=== PATIENT | female | born 1960 | race Caucasian/White ===

== ENCOUNTER → 2018-04-05 09:25 | Outpatient (CLI) | payer BC, SELFPAY ==
[2018-04-05 10:07] LABS: Hematocrit 41.7 % (37-47); Hemoglobin 13.5 g/dl (12.0-15.0); Mean Corp Hgb Conc 32.4 g/gl (32-36); Mean Corpuscular Hgb 29.7 pg (27.0-32.0); Mean Corpuscular Volume 91.6 fL (81-99); Mean Platelet Vol. 9.1 fl (6.2-12.0); Platelet Count 256 K/mm3 (150-450); RBC Distribution Width CV 14.1 % (11.6-14.6); RBC Distribution Width SD 46.2 fl (35.1-43.9); Red Blood Count 4.55 M/mm3 (4.2-5.4); White Blood Count 6.6 K/mm3 (4.4-11.0)
[2018-04-05 10:09] LABS: Scan Indicated on CBC? Y/N NO
[2018-04-05 10:47] LABS: ALB/GLOB Ratio 1.1 RATIO (0.9-2.4); AST(SGOT) 20 U/L (15-37); Alanine Aminotransfer ALT/SGPT 23 U/L (13-56); Albumin, Serum 3.7 g/dL (3.2-5.0); Alkaline Phosphatase 75 U/L (45-117); Anion Gap 8 (5-15); BUN 13 mg/dL (7-18); BUN/Creat Ratio 14.6 RATIO (10-20); Calcium,Total 9.1 mg/dL (8.5-10.1); Chloride 107 mmol/L (98-107); Cholesterol 218 mg/dL (200); Creatinine, Serum 0.89 mg/dL (0.55-1.02); EST Glomerular Filtration Rate 69 mL/min (>60); Est Glom Filt Rate - Afr Amer 84 mL/min (>60); Globulin 3.3 g/dL (2.2-4.2); Glucose 84 mg/dL (74-106); High Density Lipoprotein 64 mg/dL; Potassium 4.5 mmol/L (3.5-5.1); Sodium Level 144 mmol/L (136-145); T4 Free Direct 1.29 ng/dL (0.76-1.46); Thyroid Stim Hormone (TSH) 1.46 uIU/mL (0.358-3.74); Triglycerides 76 mg/dL; Very Low Density Lipoprotein 15 mg/dL (5-40)
== END ==
PROVIDERS: Family Provider Family Medicine; PCP Family Medicine; Referring Provider Family Medicine; Visit Provider Family Medicine
DX: Z00.01 Encounter for general adult medical examination with abnormal findings (principal); E03.9 Hypothyroidism, unspecified; M32.9 Systemic lupus erythematosus, unspecified
CPT/HCPCS: 36415; 80053; 80061; 84439; 84443; 85027

== ENCOUNTER → 2019-04-25 08:55 | Outpatient (CLI) | payer BC, SELFPAY ==
[2019-04-25 09:06] LABS: Bacteria 0 SEEN /hpf (None Seen); Mucous, Urine 0 SEEN /hpf (<or=2+); Red Blood Cells-Urine 0 SEEN /hpf (0-5); White Blood Cells 0 SEEN /hpf (0-5)
[2019-04-25 10:55] LABS: Color, Urine Yellow (Yellow); Glucose, Dipstick Normal (Normal); Ketone-Dipstick Negative (Negative); Leukocyte Esterase-Dipstick 25 /ul (Negative); Nitrite-Dipstick Negative (Negative); Occult Blood-Urine 25 /ul (Negative); Protein-Dipstick Negative (Negative); Specific Gravity, Urine 1.015 (1.002-1.030); Urine Bilirubin Dipstick Negative (Negative); Urine Clarity Clear (Clear); Urine Urobilinogen Normal (Normal)
[2019-04-25 10:59] LABS: Erythrocyte Sedimentation Rate 24 mm/hr (0-30)
[2019-04-25 11:01] LABS: Absolute Neutrophil Count 7.5 X10^3/uL (2.0-7.7); Basophil# 0.05 X10^3/uL; Basophil% 0.5 % (0-1); Eosinophil# 0.18 X10^3/uL; Eosinophils% 1.6 % (0-5); Hematocrit 42.1 % (37-47); Hemoglobin 13.2 g/dL (12.0-15.0); Lymphocyte % 20.8 % (19-41); Mean Corp Hgb Conc 31.4 g/dL (32-36); Mean Corpuscular Hgb 28.1 pg (27.0-32.0); Mean Corpuscular Volume 89.8 fL (81-99); Mean Platelet Vol. 9.1 fl (6.2-12.0); Monocyte# 1.01 X10^3/uL; Monocyte% 9.1 % (0-10); NRBC Flagged by Analyzer 0 % (0-5); Neutrophil # 7.45 X10^3/uL (2.7-7.7); Neutrophil % 67.5 % (47-70); Platelet Count 347 K/mm3 (150-450); RBC Distribution Width CV 13.8 % (11.6-14.6); RBC Distribution Width SD 45.3 fl (35.1-43.9); Red Blood Count 4.69 M/mm3 (4.2-5.4)
[2019-04-25 11:02] LABS: Squamous Epithelial Cells - UA 0-5 SEEN /hpf (5-10)
[2019-04-25 11:35] LABS: AST(SGOT) 19 U/L (15-37); Alanine Aminotransfer ALT/SGPT 21 U/L (13-56); Albumin, Serum 3.8 g/dL (3.2-5.0); Alkaline Phosphatase 91 U/L (45-117); Anion Gap 7 (5-15); BUN 11 mg/dL (7-18); BUN/Creat Ratio 13.1 RATIO (10-20); Calcium,Total 9.1 mg/dL (8.5-10.1); Chloride 104 mmol/L (98-107); Cholesterol 199 mg/dL (200); Creatinine, Serum 0.84 mg/dL (0.55-1.02); EST Glomerular Filtration Rate 74 mL/min (>60); Est Glom Filt Rate - Afr Amer 89 mL/min (>60); Globulin 3.9 g/dL (2.2-4.2); Glucose 88 mg/dL (74-106); High Density Lipoprotein 66 mg/dL; Protein, Total 7.7 g/dL (6.4-8.2); Sodium Level 141 mmol/L (136-145); T4 Free Direct 1.27 ng/dL (0.76-1.46); Thyroid Stim Hormone (TSH) 6.36 uIU/mL (0.358-3.74); Triglycerides 70 mg/dL; Very Low Density Lipoprotein 14 mg/dL (5-40)
[2019-04-27 09:55] LABS: Vitamin D,25 Hydroxy 63.3 ng/mL (29.95-100.01)
[2019-04-27 16:12] LABS: ANTINUCLEAR ANTIBODIES DIRECT Positive (Negative); Anti-Centromere B Ab 1.9 AI (0.0-0.9); Anti-Chromatin 0.2 AI (0.0-0.9); Anti-Jo <0.2 AI (0.0-0.9); Anti-Scleroderma-70 AB <0.2 AI (0.0-0.9); RNP Ab 0.2 AI (0.0-0.9); SJOGREN'S Anti-SS-A test < 0.2 AI (0.0-0.9); SJOGREN'S Anti-SS-B test < 0.2 AI (0.0-0.9); Smith Ab 0.2 AI (0.0-0.9)
[2019-04-27 16:27] LABS: Anti-dsDNA Ab 1 IU/mL (0-9)
== END ==
PROVIDERS: Family Provider Family Medicine; PCP Family Medicine; Referring Provider Family Medicine; Visit Provider Family Medicine
DX: Z00.00 Encounter for general adult medical examination without abnormal findings (principal); E03.9 Hypothyroidism, unspecified; M32.9 Systemic lupus erythematosus, unspecified; M79.10 Myalgia, unspecified site; E21.3 Hyperparathyroidism, unspecified
CPT/HCPCS: 36415; 80053; 80061; 81001; 82306; 83970; 84439; 84443; 85025; 85652; 86038; 86140; 86225; 86235

== ENCOUNTER → 2019-07-14 15:54 | Outpatient (CLI) | payer BC, SELFPAY ==
[2019-07-14 16:53] LABS: Color, Urine Yellow (Yellow); Glucose, Dipstick Normal (Normal); Ketone-Dipstick Negative (Negative); Leukocyte Esterase-Dipstick Negative /ul (Negative); Nitrite-Dipstick Negative (Negative); Occult Blood-Urine 50 /ul (Negative); Protein-Dipstick Negative (Negative); Specific Gravity, Urine 1.005 (1.002-1.030); Urine Bilirubin Dipstick Negative (Negative); Urine Clarity Clear (Clear); Urine Urobilinogen Normal (Normal)
[2019-07-14 16:54] LABS: Absolute Lymphocyte Count 2.79 X10^3/uL (0.83-4.51); Absolute Neutrophil Count 6.9 X10^3/uL (2.0-7.7); Basophil# 0.06 X10^3/uL; Basophil% 0.6 % (0-1); Eosinophil# 0.16 X10^3/uL; Eosinophils% 1.5 % (0-5); Hematocrit 39.9 % (37-47); Hemoglobin 12.2 g/dL (12.0-15.0); Lymphocyte # 2.79 X10^3/ul (4.0); Lymphocyte % 25.8 % (19-41); Mean Corp Hgb Conc 30.6 g/dL (32-36); Mean Corpuscular Volume 85.1 fL (81-99); Mean Platelet Vol. 8.8 fl (6.2-12.0); Monocyte# 0.87 X10^3/uL; NRBC Flagged by Analyzer 0 % (0-5); Neutrophil # 6.91 X10^3/uL (2.7-7.7); Neutrophil % 63.8 % (47-70); Platelet Count 424 K/mm3 (150-450); RBC Distribution Width CV 14.1 % (11.6-14.6); RBC Distribution Width SD 43.4 fl (35.1-43.9); Red Blood Count 4.69 M/mm3 (4.2-5.4); White Blood Count 10.8 K/mm3 (4.4-11.0)
[2019-07-14 17:08] LABS: Erythrocyte Sedimentation Rate 59 mm/hr (0-30)
[2019-07-14 17:12] LABS: Protein, Urine (Random) < 6.0 mg/dL (<11.9)
[2019-07-14 17:24] LABS: ALB/GLOB Ratio 0.8 RATIO (0.9-2.4); AST(SGOT) 18 U/L (15-37); Alanine Aminotransfer ALT/SGPT 23 U/L (13-56); Albumin, Serum 3.6 g/dL (3.2-5.0); Alkaline Phosphatase 97 U/L (45-117); Anion Gap 6 (5-15); BUN 10 mg/dL (7-18); BUN/Creat Ratio 11.1 RATIO (10-20); Chloride 104 mmol/L (98-107); EST Glomerular Filtration Rate 68 mL/min (>60); Est Glom Filt Rate - Afr Amer 82 mL/min (>60); Globulin 4.4 g/dL (2.2-4.2); Glucose 94 mg/dL (74-106); Potassium 3.7 mmol/L (3.5-5.1); Sodium Level 139 mmol/L (136-145)
[2019-07-15 09:28] LABS: Hepatitis B Surface Antibody Non-Reactive; Hepatitis B Surface Antigen Non-Reactive (Nonreactive); Hepatitis C Antibody Non-Reactive (Nonreactive)
[2019-07-16 10:58] LABS: Hepatitis B Core AB IgM Negative (Negative)
== END ==
PROVIDERS: Family Provider Family Medicine; PCP Family Medicine; Referring Provider Internal Medicine Rheumatology; Visit Provider Internal Medicine Rheumatology
DX: M06.4 Inflammatory polyarthropathy (principal); R76.8 Other specified abnormal immunological findings in serum; E89.0 Postprocedural hypothyroidism; Z90.09 Acquired absence of other part of head and neck
CPT/HCPCS: 36415; 80053; 81002; 82570; 84156; 85025; 85652; 86140; 86705; 86706; 86803; 87340

== ENCOUNTER → 2019-07-20 13:46 | Outpatient (CLI) | payer BC, SELFPAY | PROVIDERS: Family Provider Family Medicine; PCP Family Medicine; Referring Provider Internal Medicine Rheumatology; Visit Provider Internal Medicine Rheumatology | DX: M06.4 Inflammatory polyarthropathy (principal); R76.8 Other specified abnormal immunological findings in serum; E89.0 Postprocedural hypothyroidism; Z90.09 Acquired absence of other part of head and neck | CPT/HCPCS: 36415 ==

== ENCOUNTER → 2020-04-23 | Outpatient (CLI) ==
[2020-04-23 10:09] LABS: Absolute Lymphocyte Count 2.58 X10^3/uL (0.83-4.51); Absolute Neutrophil Count 6.1 X10^3/uL (2.0-7.7); Basophil# 0.04 X10^3/uL; Basophil% 0.4 % (0-1); Eosinophil# 0.14 X10^3/uL; Eosinophils% 1.4 % (0-5); Hematocrit 43.2 % (37-47); Hemoglobin 13.5 g/dL (12.0-15.0); Lymphocyte # 2.58 X10^3/ul (4.0); Lymphocyte % 26.5 % (19-41); Mean Corp Hgb Conc 31.3 g/dL (32-36); Mean Corpuscular Hgb 28.2 pg (27.0-32.0); Mean Corpuscular Volume 90.2 fL (81-99); Mean Platelet Vol. 9.2 fl (6.2-12.0); Monocyte# 0.87 X10^3/uL; Monocyte% 8.9 % (0-10); NRBC Flagged by Analyzer 0 % (0-5); Neutrophil # 6.08 X10^3/uL (2.7-7.7); Neutrophil % 62.5 % (47-70); Platelet Count 344 K/mm3 (150-450); RBC Distribution Width CV 14.3 % (11.6-14.6); RBC Distribution Width SD 47.5 fl (35.1-43.9); Red Blood Count 4.79 M/mm3 (4.2-5.4); White Blood Count 9.7 K/mm3 (4.4-11.0)
[2020-04-23 10:50] LABS: Vitamin D,25 Hydroxy 65.2 ng/mL
[2020-04-23 12:04] LABS: ALB/GLOB Ratio 0.9 RATIO (0.9-2.4); AST(SGOT) 19 U/L (15-37); Alanine Aminotransfer ALT/SGPT 22 U/L (13-56); Albumin, Serum 3.6 g/dL (3.2-5.0); Alkaline Phosphatase 105 U/L (45-117); Anion Gap 3 (5-15); BUN 11 mg/dL (7-18); BUN/Creat Ratio 12.2 RATIO (10-20); CRP 8.59 mg/L (0.0-3.0); Chloride 106 mmol/L (98-107); Cholesterol 192 mg/dL (200); EST Glomerular Filtration Rate 68 mL/min (>60); Est Glom Filt Rate - Afr Amer 82 mL/min (>60); Globulin 3.8 g/dL (2.2-4.2); Glucose 85 mg/dL (74-106); High Density Lipoprotein 70 mg/dL; Protein, Total 7.4 g/dL (6.4-8.2); Rheumatoid Factor < 10.0 IU/mL (<15); Sodium Level 141 mmol/L (136-145); T4 Free Direct 1.66 ng/dL (0.76-1.46); Thyroid Stim Hormone (TSH) 0.09 uIU/mL (0.358-3.74); Triglycerides 81 mg/dL; Very Low Density Lipoprotein 16 mg/dL (5-40)
[2020-04-25 08:24] LABS: PTHIN 32.1 pg/mL (18.4-80.1)
[2020-04-26 14:08] LABS: ANTINUCLEAR ANTIBODIES DIRECT Positive (Negative); Anti-Chromatin <0.2 AI (0.0-0.9); Anti-Jo <0.2 AI (0.0-0.9); Anti-Scleroderma-70 AB <0.2 AI (0.0-0.9); RNP Ab 0.2 AI (0.0-0.9); SJOGREN'S Anti-SS-A test < 0.2 AI (0.0-0.9); SJOGREN'S Anti-SS-B test < 0.2 AI (0.0-0.9); Smith Ab <0.2 AI (0.0-0.9)
[2020-04-26 18:23] LABS: Anti-dsDNA Ab 1 IU/mL (0-9)
[2020-04-27 12:23] LABS: CCP IgG Antibodies 9 units (0-19)
== END | disposition home or self-care (01) ==
PROVIDERS: Family Medicine
DX: Z00.00 Encounter for general adult medical examination without abnormal findings (principal); M32.9 Systemic lupus erythematosus, unspecified; E03.9 Hypothyroidism, unspecified; M06.4 Inflammatory polyarthropathy; Z86.39 Personal history of other endocrine, nutritional and metabolic disease
CPT/HCPCS: 36415; 80053; 80061; 82306; 83970; 84439; 84443; 85025; 86038; 86140; 86200; 86225; 86235; 86431

== ENCOUNTER → 2021-03-03 13:44 | Outpatient (CLI) | payer BC, SELFPAY ==
--- NOTE | 2021-03-03 | BRBX_PTH ---
PATIENT: MARIANNA SMITH LOC: [facility] U#:[id number] AGE/SX: 65/F ROOM: RE03/03/[address]: Dr. Hilda Lira MD : 1960 BED: DIS: SPEC #: [id number] RECD: 03/03/21 13:51 STATUS: CORNELIUS REMarianela #: [id number] MONIKA: 03/03/21 00:[address]: Hilda Lira DEPT: SURGICAL PATHOLOGY RECD BY: Tl Burrell ENTERED: 03/03/21 13:51 SP TYPE: BREAST BX OTHR DR: Dr. Carlos Alberto Lobo DO Tissues: Right breast, NOS Procedures: Surgery Specimen Level IV HEADER OPERATION: Right breast biopsy PRE-OP DIAGNOSIS: Right breast mass 12 o?clock, 4 cm from nipple TISSUE SUBMITTED: Right breast tissue FIXATION TIME: 80.5 hours MICROSCOPIC DIAGNOSIS Right breast mass, 12 o?clock, 4 cm from nipple, core biopsy: Invasive ductal carcinoma, nuclear grade 2 (0.3 cm in greatest length). See comment. 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 Immunohistochemistry ([id number]) supports the above diagnosis. ER/ID/Ncd3hrm studies are being performed on sections of tumor and the results from this study will be reported separately ([id number]). Case has been reviewed in consultation with Dr. Walters who concurs with the above diagnosis. IDC:AM MICROSCOPIC DESCRIPTION Slides are reviewed. GROSS DESCRIPTION Received in fixative is one container labeled with the patient name and designated right breast. The specimen consists of multiple elongated fragments of dorantes-yellow fibroadipose tissue that in aggregate measure 1.5 x 0.5 x 0.1 cm. The entire specimen is submitted in one cassette. / YOLANDA:venus 03/03/21 TC:0 CPT: 22792
--- NOTE | 2021-03-03 | IMM_PTH ---
PATIENT: MARIANNA SMITH LOC: [facility] U#:[id number] AGE/SX: 65/F ROOM: RE03/03/[address]: Dr. Hilda Lira MD : 1960 BED: DIS: SPEC #: [id number] RECD: 03/06/21 10:07 STATUS: CORNELIUS REQ #: [id number] MONIKA: 03/03/21 00:[address]: Hilda Lira DEPT: IMMUNOHISTOCHEMISTRY RECD BY: Autumn Plunkett ENTERED: 03/06/21 10:09 SP TYPE: IMMUNO OTHR DR: Dr. Carlos Alberto Lobo DO Tissues: Right breast, NOS Procedures: CALPONIN-1 (add) CK5-6 (add) CK8 (add) E-CAD (add) HER2 BURAK (add) KI-67 (add) P53 (add) NH (add) P40 (add) ER (initial) PHYSICIAN & INSTITUTION [address] [address] SPECIMEN INFORMATION: Tissue Source: Right breast Clinical Info: Right breast mass, 12 o?clock, 4 cm from nipple Specimen Number: [id number] CPT code: 37508, 01586 x6, 05916 x3 METHODOLOGY: Deparaffinized sections of prefer/formalin-fixed tissue or PAP/DQ stained slides are incubated with monoclonal/polyclonal antibodies/oligonucleotide probes. Localization is made via biotin free immunoperoxidase method. Appropriate controls are performed and reacted as expected. Results on target cell population are indicated in the following table: RESULTS: ANTIBODY / CLONE RESULT E-Cad (ECH-6) positive CK8 (68tzqaO95) positive Calponin-1 (RT075T) negative CK5-6 (D5 & 1684) negative P40 (BC28) negative P53 (DO-7) positive, rare cells Ki-67 (30-9) positive, low MORPHOMETRIC ANALYSIS ER (clone 6F11) >95%, strong intensity NH (clone 16/1E2) <1% Her-2Neu (clone CB11) 3+ The prognostic test for HER2 is performed on formalin-fixed paraffin embedded tissue. A 3+ (positive) staining pattern is defined as intense, homogeneous, complete, circumferential membranous staining in >10% of contiguous tumor cells. A similar weak (2+) staining pattern is interpreted as equivocal. JACQUELINE follow-up testing is recommended for all equivocal cases. Positivity/negativity for ER/NH is reported if > or < 1% of the tumor cells are immuno- reactive, respectively. The ASCO/CAP criteria is used for scoring. Reference: Journal of Clinical Oncology, 2013; 31:6846-5143 & 2010; 16:4113-2914. Duration of fixation: 80.5 Hrs; Sample Adequate: Yes. These assays have not been validated on decalcified tissues. Results should be interpreted with caution given the likelihood of false negativity on decalcified specimens. These tests were developed and their performance characteristics determined by [facility]. They may not have been cleared or approved by the U.S. Food and Drug Administration. The FDA has determined that such clearance or approval is not necessary. The above immunohistochemical/dualISH markers are ordered and reviewed by the Pathologist. INTERPRETATION: Right breast mass, 12 o?clock, 4 cm from nipple, core biopsy: Invasive ductal carcinoma, nuclear grade 2. Positive for estrogen receptors (favorable prognostic indicator). Negative for progesterone receptors (unfavorable prognostic indicator). Positive for overexpression of RBJ1xqx. SJ:venus 03/07/2021
== END ==
PROVIDERS: PCP Family Medicine; Visit Provider Surgery
DX: N63.0 Unspecified lump in unspecified breast (principal)
CPT/HCPCS: 88305; 88341; 88342

== ENCOUNTER → 2021-03-20 11:26 | Outpatient (CLI) | payer BC, SELFPAY ==
--- NOTE | 2021-03-20 11:39 | MRI_ITS ---
STUDY: BILATERAL BREAST MR WITHOUT AND WITH CONTRAST REASON FOR EXAM: Female, 60 years old. Positive biopsy of right breast cancer. TECHNIQUE: Multi-sequence multi-echo imaging of both breasts was performed with a dedicated breast coil. T1-weighted and T2-weighted images were performed before the administration of contrast. T1-weighted images were also performed after the administration of 9ml IV Dotarem without complications. COMPARISON: Screening mammogram dated 02/17/2019 and 02/16/2020. Right breast ultrasound 02/15/2021 and ultrasound-guided biopsy images of the right breast dated 03/02/2021. FINDINGS: RIGHT BREAST: The breast tissue is scattered fibroglandular densities with minimal background enhancement. Lobulated enhancing mass at the 12 o''clock position of the right breast 4 cm behind the nipple corresponding to the mammographic and ultrasonographic abnormalities measuring 1.6 cm x 1.2 cm x 2.4 cm. LEFT BREAST: The breast tissue is scattered fibroglandular densities with minimal background enhancement. There are no abnormal enhancing masses or areas of non-mass enhancement in the left breast. There are no enlarged or abnormal lymph nodes. There is no abnormality in the visualized regions of the chest or liver. MRI/Breast Bilateral W/O and W IMPRESSION: Lobulated enhancing mass measuring 1.6 cm x 1.2 cm x 2.4 cm at the 12 o''clock position of the right breast 4 cm behind the nipple corresponding to the index lesion shown on mammography and ultrasound. No other abnormality on the breast MRI with contrast. CATEGORY: BIRADS Category 6: Known Biopsy-Proven Malignancy - Appropriate Action Should Be Taken. A letter regarding these results will be sent to the patient by the facility within 30 days. Electronically Signed: Reese Jean MD at 12:03 EDT , Service support ,
[2021-03-20 12:00] LABS: CREATININE FINGERSTICK 0.9 mg/dL (0.55-1.02); EGFR FINGERSTICK > 60.0000 mL/min (>60)
== END ==
PROVIDERS: PCP Family Medicine; Referring Provider Surgery; Visit Provider Surgery
DX: C50.919 Malignant neoplasm of unspecified site of unspecified female breast (principal)
CPT/HCPCS: 77049; A9575; A4216; C8908

== ENCOUNTER → 2021-03-23 16:28 | Outpatient (CLI) | payer BC, SELFPAY ==
--- NOTE | 2021-03-23 16:45 | RAD_ITS ---
STUDY: X-RAY - LUMBAR SPINE REASON FOR EXAM: Female, 60 years old. Low back and right leg pain TECHNIQUE: 5 view(s) of the lumbar spine were obtained. COMPARISON: None FINDINGS: Normal lumbar lordosis. There is a mild dextroscoliosis of the lumbar spine. There is a normal alignment of the vertebrae in the lateral view. There is multilevel endplate spondylosis of the lumbar vertebrae. There is multi-level degenerative disc disease with multi-level disc space narrowing. There is no demonstrated fracture. The soft tissue structures are unremarkable. RAD/Lumbar Spine 2 or 3 Views IMPRESSION: Degenerative changes of the spine, as detailed above. Mild levoscoliosis Electronically Signed: Juan Greer MD at 16:59 EDT , Service support ,
== END ==
PROVIDERS: PCP Family Medicine; Referring Provider Family Medicine; Visit Provider Family Medicine
DX: M79.604 Pain in right leg (principal)
CPT/HCPCS: 72100

== ENCOUNTER → 2021-03-27 15:14 | Outpatient (CLI) | payer BC, SELFPAY ==
--- NOTE | 2021-03-27 15:16 | ECHODONC_ITS ---
Reason For Study: PRE-CHEMO Procedure This was a 2D Doppler, Color Flow transthoracic echocardiogram. Myocardial strain analysis was performed in this exam to aid in the assessment of cardiac function. Exam performed portable in ICU/CCU. Left Ventricle Normal LV size. Left ventricular systolic function is normal. The estimated ejection fraction is 60 %. Normal diastology for age. No regional wall motion abnormalities noted. Right Ventricle Normal RV size. Normal systolic function. Atria Normal left atrium. Normal right atrium. Mitral Valve Normal mitral valve. Tricuspid Valve Normal tricuspid valve. Mild tricuspid valve insufficiency. Pulmonary artery systolic pressure is 26 mmHg. Aortic Valve Normal aortic valve. Trisinus/trileaflet aortic valve. Pulmonic Valve Normal pulmonic valve. Great Vessels Normal aortic root. The pulmonary artery is normal size. Normal inferior vena cava. Pericardium/Pleural No pericardial effusion. MMode/2D Measurements & Calculations LVIDd: 3.9 cm IVSd: 0.82 cm Ao root diam: 2.6 cm LVIDs: 2.7 cm LVPWd: 0.76 cm RVDd: 2.9 cm FS: 31.7 % LAV(MOD-bp): 35.2 ml LA A4 area: 14.3 cm2 LA dimension(2D): 3.0 cm LAV(MOD-bp) Indexed: 24.3 ml/m2 LAV(MOD-sp2): 28.8 ml LAV(MOD-sp4): 36.9 ml RA A4 area: 11.6 cm2 Doppler Measurements & Calculations MV E max adam: 69.1 cm/sec Lat Peak E' Adam: 12.4 cm/sec Med Peak E' Adam: 7.4 cm/sec MV A max adam: 55.2 cm/sec E/E' lat: 5.6 E/E' med: 9.4 MV E/A: 1.3 Ao V2 max: 137.3 cm/sec LV V1 max: 110.8 cm/sec TR max adam: 235.4 cm/sec Ao max P.5 mmHg LV V1 max P.9 mmHg TR max P.2 mmHg ECHO/ONC Echo Complete Interpretation Summary Normal LV size. Left ventricular systolic function is normal. The estimated ejection fraction is 60 %. The global longitudinal strain is normal. The global longitudinal strain = -23. 1 % (normal). Structurally normal valves. Ordering Physician: Roger Conti Referring Physician: MARI AGUIRRE Performed By: Margaret Lopez RDCS, RVT
--- NOTE | 2021-03-27 16:20 | RAD_ITS ---
STUDY: X-RAY CHEST REASON FOR EXAM: Female, 60 years old. Breast cancer. Prechemotherapy TECHNIQUE: PA and lateral views of the chest. COMPARISON: None. FINDINGS: The lungs are clear and expanded. There is no demonstrated pleural abnormality. Normal size heart. Normal mediastinum and venus. Normal visualized pulmonary arteries. Normal visualized aortic arch and descending thoracic aorta. Minimal degenerative changes of the thoracic spine. Normal visualized ribs, clavicles, and shoulders. There is no demonstrated abnormality of the visualized soft tissue structures of the upper abdomen. RAD/Chest PA and Lateral IMPRESSION: No acute cardiopulmonary disease. Electronically Signed: Arnaud Argueta DO at 17:51 EDT Tel [phone], Service support ,
== END ==
PROVIDERS: PCP Family Medicine; Referring Provider Internal Medicine Medical Oncology; Visit Provider Internal Medicine Medical Oncology
DX: C50.411 Malignant neoplasm of upper-outer quadrant of right female breast (principal); Z17.0 Estrogen receptor positive status [ER+]; Z01.818 Encounter for other preprocedural examination
CPT/HCPCS: 71046; 93306; 93356

== ENCOUNTER → 2021-03-30 16:03 | Outpatient (CLI) | payer BC, SELFPAY ==
--- NOTE | 2021-03-30 16:06 | BD_ITS ---
STUDY: DUAL ENERGY X-RAY ABSORPTIOMETRY / DXA REASON FOR EXAM: Female, 60 years old. SCREENING TECHNIQUE: Bone Mineral Density (BMD) measurements of lumbar spine and bilateral hips were obtained. COMPARISON: None. FINDINGS: Lumbar Spine (L1-L4): g/cm2 (0.915) / T-score (-1.1) / Z-score (0.4) Findings are suggestive of osteopenia with a low fracture risk. Left Femur Total: g/cm2 (0.683) / T-score (-2.1) / Z-score (-1.1) Left Femoral Neck: g/cm2 (0.597) / T-score (-2.3) / Z-score (-0.9) Right Femur Total: g/cm2 (0.680) / T-score (-2.1) / Z-score (-1.1) Right Femoral Neck: g/cm2 (0.672) / T-score (-1.6) / Z-score (-0.2) BD/Dexa Bone Density Study IMPRESSION: The patient is considered osteopenic as outlined below according to World Jossue Organization (WHO) criteria with a high fracture risk. Reference Information: The T-score is the number of standard deviations above or below the standard which is normal for young adults at their peak bone mineral density. The World Health Organization (WHO) interprets the T-scores as follows: Above -1 Normal bone density Between -1 and -2.5 Osteopenia Equal to / or below -2.5 Osteoporosis As a practical clinical guideline, osteopenia may be graded as follows: Mild -1 through -1.5 Moderate -1.6 through -2.0 Severe -2.1 through -2.4 The Z-score is the number of standard deviations above or below age-matched controls. A Z-score of less than -1.5 would be considered abnormal. References: 1. NIH Osteoporosis and Related Bone Diseases www osteo.org 2. International Society for Clinical Densitometry www iscd.org 3. National Osteoporosis Foundation www nof.org Electronically Signed: Shun Giordano MD at 15:01 EDT , Service support ,
== END ==
PROVIDERS: PCP Family Medicine; Referring Provider Internal Medicine Medical Oncology; Visit Provider Internal Medicine Medical Oncology
DX: Z13.820 Encounter for screening for osteoporosis (principal)
CPT/HCPCS: 77080

== ENCOUNTER 2021-03-31 13:47 | Observation (INO) | payer BC, SELFPAY ==
--- NOTE | 2021-03-29 16:09 | EKG12_ITS ---
Test Reason : PREOP Blood Pressure : / mmHG Vent. Rate : 068 BPM Atrial Rate : 068 BPM P-R Int : 116 ms QRS Dur : 074 ms QT Int : 386 ms P-R-T Axes : 078 084 053 degrees QTc Int : 410 ms Normal sinus rhythm Normal ECG Confirmed by CHRIS GAR, EDGAR ([id number]), senior technical editor JAYDEN LOPEZ ([id number]) on 03/31/2021 9:57:50 AM Referred By: Hilda Lira Confirmed By:EDGAR PEREZ MD
[2021-03-29 17:01] LABS: Hematocrit 41.8 % (37-47); Hemoglobin 13.6 g/dL (12.0-15.0); Mean Corp Hgb Conc 32.5 g/dL (32-36); Mean Corpuscular Hgb 29.6 pg (27.0-32.0); Mean Corpuscular Volume 90.9 fL (81-99); Mean Platelet Vol. 8.7 fl (6.2-12.0); Platelet Count 279 K/mm3 (150-450); RBC Distribution Width CV 14.6 % (11.6-14.6); RBC Distribution Width SD 49.4 fl (35.1-43.9); White Blood Count 9.4 K/mm3 (4.4-11.0)
[2021-03-29 17:20] LABS: Partial Thromboplast Time 28.3 Seconds (24.1-36.2)
[2021-03-29 17:41] LABS: AST(SGOT) 27 U/L (15-37); Alanine Aminotransfer ALT/SGPT 22 U/L (13-56); Albumin, Serum 3.7 g/dL (3.2-5.0); Alkaline Phosphatase 82 U/L (45-117); Anion Gap 2 (5-15); BUN 13 mg/dL (7-18); BUN/Creat Ratio 13.6 RATIO (10-20); Bilirubin, Direct 0.14 mg/dL (0.00-0.30); Calcium,Total 8.9 mg/dL (8.5-10.1); Chloride 107 mmol/L (98-107); Creatinine, Serum 0.96 mg/dL (0.55-1.02); EST Glomerular Filtration Rate 63 mL/min (>60); Est Glom Filt Rate - Afr Amer 76 mL/min (>60); Globulin 3.5 g/dL (2.2-4.2); Glucose 101 mg/dL (74-106); Potassium 3.9 mmol/L (3.5-5.1); Protein, Total 7.2 g/dL (6.4-8.2); Sodium Level 139 mmol/L (136-145)
[2021-03-31] VITALS (8 sets, daily range): BP systolic 132–155; BP diastolic 70–86; PULSE 64–75; RESP 16; TEMP 36.2–37.1; O2SAT 97–100; BMI 19.2; BMI 20.5
--- NOTE | 2021-03-31 | IMM_PTH ---
PATIENT: MARIANNA SMITH LOC: MS2 U#:[id number] AGE/SX: 60/F ROOM: [facility] RE03/31/[address]: Dr. Hilda Lira MD : 1960 BED: 1 DIS: 04/01/2021 SPEC #: [id number] RECD: 04/05/21 12:09 STATUS: CORNELIUS REQ #: [id number] MONIKA: 03/31/21 00:[address]: Hilda Lira DEPT: IMMUNOHISTOCHEMISTRY RECD BY: Autumn Plunkett ENTERED: 04/05/21 12:11 SP TYPE: IMMUNO OTHR DR: Dr. Carlos Alberto Lobo, DO Tissues: A - Axillary lymph node, NOS B - Right breast, NOS Procedures: Calponin-1(initial) CALPONIN-1 (add) CK7 (add) Pankeratin (initial) Pankeratin (add) P40 (add) PHYSICIAN & INSTITUTION [place] [address] SPECIMEN INFORMATION: Tissue Source: A ? Right sentinel node, biopsy, B ? Right breast Clinical Info: Breast cancer Specimen Number: [id number] A1 & A2, B4-B6 CPT code: 59855 x2, 14150 x8 METHODOLOGY: Deparaffinized sections of prefer/formalin-fixed tissue or PAP/DQ stained slides are incubated with monoclonal/polyclonal antibodies/oligonucleotide probes. Localization is made via biotin free immunoperoxidase method. Appropriate controls are performed and reacted as expected. Results on target cell population are indicated in the following table: RESULTS: ANTIBODY / CLONE RESULT Block A1 AE1-3 (AE1/AE3/PCK26) negative CK7 (OV-TL12/30) negative Block A2 AE1-3 (AE1/AE3/PCK26) negative CK7 (OV-TL12/30) negative Block B4 Calponin-1 (QA085K) focally negative P40 (BC28) focally negative Block B5 Calponin-1 (IB580G) negative P40 (BC28) negative Block B6 Calponin-1 (ZI795Q) negative P40 (BC28) negative These tests were developed and their performance characteristics determined by [facility]. They may not have been cleared or approved by the U.S. Food and Drug Administration. The FDA has determined that such clearance or approval is not necessary. The above immunohistochemical/dualISH markers are ordered and reviewed by the Pathologist. INTERPRETATION: A. Right sentinel lymph nodes, biopsy: Two out of two lymph nodes, negative for metastatic carcinoma. B. Right breast, mastectomy: Invasive ductal carcinoma, arising in a solid papillary carcinoma, ductal carcinoma in situ also present. YOLANDA:venus 04/10/2021 Case has been reviewed in consultation with Dr. Walters who concurs with the above diagnosis. IDC:AM
--- NOTE | 2021-03-31 | BREAST_PTH ---
PATIENT: MARIANNA SMITH LOC: MS2 U#:[id number] AGE/SX: 60/F ROOM: [facility] RE03/31/[address]: Dr. Hilda Lira MD : 1960 BED: 1 DIS: 04/01/2021 SPEC #: [id number] RECD: 03/31/21 13:12 STATUS: CORNELIUS REMarianela #: [id number] MONIKA: 03/31/21 00:[address]: Hilda Lira DEPT: SURGICAL PATHOLOGY RECD BY: Tl Burrell ENTERED: 03/31/21 13:13 SP TYPE: BREAST OTHR DR: Dr. Carlos Alberto Lobo, DO Tissues: A - LYMPH NODE BIOPSY B - Right breast, NOS C - Left breast, NOS Procedures: Frozen Section (charge) Frozen Section Add'l ([facility]) Surgery Specimen Level V HEADER OPERATION: Right mastectomy with sentinel lymph node biopsy PRE-OP DIAGNOSIS: Breast cancer TISSUE SUBMITTED: A - Right sentinel nodes, FS, B - Right breast, long - lateral, short - superior, C - Left breast, long stitch - lateral, short - superior FROZEN SECTION DIAGNOSIS A. Right sentinel nodes, biopsy: Two out of two lymph nodes negative for carcinoma. AM:venus 03/31/2021 Case has been reviewed in consultation with Dr. Fry who concurs with the above diagnosis. IDC:SJ MICROSCOPIC DIAGNOSIS A. Right sentinel lymph nodes, biopsy: Two out of two lymph nodes, negative for metastatic carcinoma. B. Right breast, mastectomy: Invasive ductal carcinoma, arising in a solid papillary carcinoma, ductal carcinoma in situ also present. See comment. C. Left breast mastectomy: Fibrocystic changes, adenosis and .intraductal hyperplasia without atypia Lobular involution. Focal calcifications. SJ:venus 04/10/2021 COMMENT A. The lymph nodes are negative for metastatic carcinoma on multiple H & E levels and immunohisto-chemical stains for cytokeratins ([id number]). B. All the slides containing the tumor are sent to [facility] for expert opinion and reviewed by Dr. Bethanie Macedo and above diagnosis is ordered. The complete report is viewable in patient?s EMR. Immunohistochemistry ([id number]) performed here and also [facility]. BREAST CANCER SUMMARY Procedure ? total mastectomy Specimen laterality ? right Invasive tumor: Tumor site ? central upper quadrant Tumor size ? 1.0 cm in greatest dimension. Histologic type ? invasive ductal carcinoma, not otherwise specified Histologic grade (Ayush grade): Glandular/tubular differentiation score - 3 Nuclear pleomorphism score - 2 Mitotic count score - 1 Overall grade ? grade 2 (score of 6) Tumor focality ? single focus of invasive carcinoma Ductal carcinoma in situ ? present Positive for extensive intraductal component (EIC). Size (extent) of DCIS ? DCIS measures 1.5 cm in greatest dimension. Number of blocks with DCIS ? 4 Number of blocks examined ? 12 Architectural pattern ? comedo, solid and solid papillary Nuclear grade ? grade 2 Necrosis ? present, central (expansive ?comedo? necrosis) Lobular carcinoma in situ ? not identified Tumor extension: Skin ? present and uninvolved Nipple ? DCIS does not involve nipple epidermis Skeletal muscle ? no skeletal muscle is present. Margins ? margins are uninvolved by DCIS and invasive carcinoma. DCIS and invasive carcinoma are 0.5 cm away from the closest posterior margin. Regional lymph nodes: Number of lymph nodes examined ? 2 Number of sentinel lymph nodes examined - 2 Number of lymph nodes with macrometastases, micrometastases or isolated tumor cells - 0 Treatment effect ? no known presurgical therapy. Lymphvascular invasion ? not identified Dermal lymphvascular invasion ? not identified Additional Pathologic Findings ? - Fibrocystic changes, adenosis and intraductal hyperplasia without atypia. - Lobular involution. Ancillary Studies: Previously performed on same tumor ([id number] / [id number]) ER: positive (>95%, strong intensity) WI: negative (<1%) Sfg0xcp: positive (3+) Microcalcifications ? present in DCIS and benign breast tissue. Clinical History - Please make reference to previous specimen ([id number]) right breast mass 12 o?clock, 4 cm from nipple, core biopsy with diagnosis of ?invasive ductal carcinoma.? PATHOLOGIC STAGE: pT1b pN0(sn) pMx The above summary is in compliance with [employer] Path[employer] (CAP) Cancer Protocols Checklist and [place] Joint Committee on Cancer (AJCC), Staging Manual, 8th Ed. This case is discussed with Dr. Lira on 04/10/21. Case has been reviewed in consultation with Dr. Walters who concurs with the above diagnosis. IDC:AM MICROSCOPIC DESCRIPTION Slides are reviewed. GROSS DESCRIPTION A - Received fresh for frozen section diagnosis labeled with the patient's name is a specimen designated right sentinel lymph nodes. The specimen consists of two pieces of adipose tissue containing nodules measuring 0.5 x 0.5 x 0.2 cm and 2 x 1 x 0.5 cm. The largest lymph node is bisected. The entire specimen is submitted for frozen section diagnosis in two cassettes as follows: 1 - smaller lymph node, 2??one bisected lymph node. / SJ:rg 03/31/21 B - Received in fixative is one container labeled with the patient's name and designated right breast. The specimen consists of a mastectomy specimen consisting of breast tissue with overlying skin including nipple and areola. The breast tissue measures 15.5 x 15 x 3.5 cm. The overlying skin ellipse measures 12 x 6 cm. The nipple measures 1 cm in greatest dimension. The specimen is oriented as follows: short suture - superior, long suture - lateral. The specimen is inked as follows: posterior - black, superior - blue, inferior - green, medial - red and lateral - orange. Serial sections reveal a pink-dorantes nodule in the central upper quadrant measuring 1.5 x 1.5 x 1.5 cm. This nodule is 0.5 cm away from the closest posterior margin. Sections of the rest of the breast tissue reveal dorantes-yellow adipose cut surfaces mixed with dorantes-white fibrous area. / SJ:rg 03/31/21 Discoloration is noted on the skin surface. No skin lesion is identified. Rn Diabetes Educator sections are submitted in 12 cassettes as follows: 1 - nipple, entirely submitted, 2 - perpendicular medial, lateral and posterior margins, 3 - perpendicular superior and inferior margins and skin, 4-7 - entire tumor, 812??underwriting sales representative sections adjacent and away from the tumor. Sections are submitted after additional fixation. / SJ:venus 04/03/21 C - Received in fixative is one container labeled with the patient's name and designated left breast, long stitch - lateral, short stitch - superior. The specimen consists of mastectomy specimen consisting of breast tissue with overlying skin ellipse. The breast tissue measures 15 x 11 x 4 cm and overlying skin ellipse measures 12 x 6.5 cm. The nipple measures 1.2 cm in greatest dimension. No skin lesion is identified. The specimen is inked as follows: posterior - black, superior - blue, inferior - green, medial - red and lateral - orange. Sections do not reveal any obvious mass lesion. Sections reveal yellow adipose cut surfaces with dorantes-white fibrous area. Rn Diabetes Educator sections are submitted in ten cassettes as follows: 1 - nipple, entirely submitted, 24??lateral portion of breast, 5-7 - middle portion of breast, 8-10 - medial portion of breast. Sections will be submitted after additional fixation. / SJ:venus 04/03/21 TC:0 CPT: 16026 x3, 70296, 38732
--- NOTE | 2021-03-31 08:00 | NM_ITS ---
PROCEDURE: NUCLEAR MEDICINE Injection Bartlett Node - RIGHT breast(s). REASON FOR EXAM: Female, 60 years old. Right breast cancer. TECHNIQUE: Bartlett node localization using radionuclide methods of the RIGHT breast(s) was performed following subcutaneous administration of 1.1 mCi of of sulfur colloid Tc-99m. FINDINGS: 1.1 mCi of technetium labeled sulfur colloid was injected subcutaneously in the periareolar region of the right breast. NM/Lymph Node Injection Only IMPRESSION: Subcutaneous injection of 1.1 mCi of technetium labeled sulfur colloid in the periareolar region of the right breast. Electronically Signed: Shun Giordano MD at 10:49 EDT , Service support ,
[2021-03-31] MEDS: Lactated Ringers 1,000 ML 100 ML IV (09:00)
--- NOTE | 2021-03-31 09:47 | HP.PCM_ITS ---
History and Physical Date of Admission: 03/31/21 Date of Service: 03/27/21 Intake Intake Visit Reasons: DISCUSS SURGERY OPTIONS Chief Complaint: Referred for right breast cancer. Allergies prednisone Allergy (Intermediate, Verified 03/29/21 13:09) Severe Headaches cortisone Allergy (Mild, Verified 03/29/21 13:09) Shrunk muscle in arm amoxicillin Allergy (Unknown, Verified 03/29/21 13:09) Unknown cimetidine [From Tagamet] Allergy (Unknown, Verified 03/29/21 13:09) Unknown Medications levothyroxine 75 mcg tablet 75 mcg PO MOTUWETHFRSA 03/02/21 [History Confirmed 03/29/21] meloxicam 7.5 mg tablet 7.5 mg PO BID tab 03/02/21 [History Confirmed 03/29/21] calcium carbonate 500 mg (1,250 mg)-vitamin D3 400 unit tablet 1 tab PO DAILY 03/15/21 [History Confirmed 03/29/21] cholecalciferol (vitamin D3) 50 mcg (2,000 unit) capsule 50 mcg PO DAILY 03/15/21 [History Confirmed 03/29/21] [facility] Medical History (Updated 03/30/21 @ 08:[address] Hilda Lira MD) Anxiety Arthritis Arthritis Breast cancer Cancer Easy bruising Excessive bleeding History of echocardiogram History of edema History of pain when walking Lupus Non-smoker Thyroid disorder Wears glasses Surgical History History of hysterectomy History of parathyroid surgery History of tonsillectomy History of tubal ligation Family History Father Heart disease Aunt Breast cancer, Onset Age: 70 paternal Uncle Prostate cancer paternal Uncle Cancer head/neck (throat) paternal Social History Smoking Status: Never smoker alcohol intake: never substance use type: does not use caffeine: Yes Type: coffee Number of servings: 3 what type of physical activity do you participate in: walking frequency: 3-4 times per week HPI HPI HPI: MARIANNA SMITH, is a 60 F who presents to the office today for discussion of breast cancer surgery. Patient saw Dr. Zeng and learned that her lupus could be an issue with radiation thus she would like to avoid it if possible and have a mastectomy. She is also interested in a prophylactic left mastectomy as well and not interested in reconstruction due to her lupus. Exam Const General: cooperative, healthy appearing, comfortable and no acute distress Neck Neck: normal visual inspection Chest Other: Right breast: Biopsy site healing well mild ecchymosis resolving Resp Effort & Inspection: normal respiratory effort Cardio Rate: regular rate GI Inspection: non-distended Palpation: soft, no guarding and nontender Skin General: no rashes or lesions noted Neuro General: patient oriented x3 Psych Affect: normal affect Assessment and Plan Assessment and Plan (1) Breast cancer: Status: Acute Qualifiers: Breast location: upper outer quadrant of breast Estrogen receptor status: positive Patient sex: female Laterality: right Qualified Code(s): C50.411 - Malignant neoplasm of upper-outer quadrant of right female breast; Z17.0 - Estrogen receptor positive status [ER+] Comment: Right breast invasive ductal carcinoma, grade 2, ER 95% positive, MI negative, HER-2 3+. Tumor size clinically 1.3 cm. Discussed breast cancer management, role of surgery, role of neoadjuvant chemotherapy versus adjuvant chemotherapy, monoclonal antibody Her2 therapy and Hormonal therapy. MRI of the breast has been ordered. Surgical management depends on results of MRI. She can forego neoadjuvant therapy if axillary lymph nodes are not involved. (2) Lupus: Status: Inactive (3) Encounter for prophylactic surgery for risk factor related to malignant neoplasm of breast: Status: Acute Plan - Dr. Hilda Lira MD: Options are the following: lumpectomy followed by radiation therapy vs. mastectomy vs. mastectomy followed by immediate reconstruction. I have described the procedures to the patient. I have described the advantages and disadvantages of the options, but I have told the patient that among the options, the survival rate for breast cancer is the same. Discussed with patient due to the size of her breast and also the size of the tumor to only about a centimeter she would still qualify for a lumpectomy. However if she needed more tissue removed due to a larger tumor seen on MRI patient may not be a candidate for lumpectomy. I have told the patient that with all the surgeries that a sentinel lymph node biopsy is required. I have described the procedure of sentinel lymph node biopsy to the patient. I have told the patient that if the biopsy is positive for metastatic disease, then a full axillary lymph node dissection is required. I have told the patient that adjuvant chemotherapy will be required should the lymph nodes reveal metastatic disease. Also, a full lymph node dissection will increase the risk for lymphedema, especially if there are 4 or more lymph nodes positive for metastatic disease and radiation to the axilla is also required. I have told the patient the risks of surgery, including but not limited to: infection, bleeding, scar tissue, seroma and persistent seroma, lymph leak, inj ury to any blood vessels, injury to any nerves (particularly the long thoracic, the thoracodorsal, and the second intercostal brachial and the resultant sequelae), lymphedema, cosmetic deformity, dysesthesias, wound infections, further surgery (especially if margins are not clear), complications of anesthesia, etc. the patient understands. After seeing radiation oncology and due to her lupus pt has decided to get Right mastectomy with SNL bx, nuclear tracer/blue dye, poss. ALND, left prophylactic mastectomy. I did discuss with the patient her increased risk is in her right breast and it could be risk of double the complications because 2 surgeries, she still elected to do bilateral mastectomy partly due to anxiety having breast cancer in the other breast and with her lupus. I have answered all the patient?s questions at this point to her satisfaction and she has no further questions. Greater than 50% of direct patient contact was spent in counseling on breast cancer surgery/treatment or coordination of care. I spent 25 minutes counseling the patient and coordinating care. Hilda Lira M.D. Pager: [phone] [facility] [address] [place] [address], [address] [place] [id number] Office: [phone] Coding Level of Care Code Off vis,est,level 4 Diagnoses Breast cancer C50.411; Z17.0 Breast location: upper outer quadrant of breast Estrogen receptor status: positive Patient sex: female Laterality: right Lupus M32.9 Encounter for prophylactic surgery for risk factor related to malignant neoplasm of breast Z40.01 03/30/21 0829<Electronically signed by Hilda Lira MD>Date Hilda Lira MD
[2021-03-31] MEDS: 0.9% Normal Saline (Pres. free 10 ML Vial (11:10)
--- NOTE | 2021-03-31 13:37 | PCM.OPRPT ---
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 Right mastectomy with sentinel lymph node biopsy with injection of nuclear tracer and methylene blue. 2. prophylactic left mastectomy Description of Surgical Findings:: 2 sentinel nodes negative Surgeon: Hilda Lira machine grinder: None ([facility] [place]) machine grinder: Tania Hsieh Type of Anesthesia: General/Supplemental Anesthesiologist: Mitch Ren Special Medications: Clindamycin 900 mg IV x1 Specimen's removed: 1. Right sentinel lymph node, 2. Right mastectomy, 3. Left mastectomy Drains: ZAYNAB x2 one on each side Estimated Blood Loss (mL): 20 cc Fluids Replaced: Per anesthesia Description of Procedure: In radiology the breast tissue was injected with TC-9 9 sulfur colloid. 90 minutes later the patient was taken to the operating room and general anesthesia was induced. Localization studies were reviewed. 5 cc of methylene blue 0.5% blue dye was injected in the 4 quadrants periareolar along with 10 cc of normal saline. This was massaged gently for 5 minutes. The right breast and axilla were prepped and draped in usual sterile fashion. A timeout was completed verifying correct patient, procedure, site, positioning, special equipment prior to beginning procedure. Handheld gamma probe was used to identify the location of the hottest spot in the axilla. Prior to the incision, the counts were 16. The elliptical mastectomy incision encompassing the nipple areolar complex was planned extending to the axilla. The axillary portion of the incision was made in the blue and hot node was identified x2. The probe was placed in contact with the nodes in the 10 count 679 and 698. The bed of the node measured 2 counts. No additional blue or hot nodes were detected. Frozen was negative for the 2 sentinel nodes. Both mastectomies were done in similar fashion. Right was done first and the left side was redraped prior to beginning, gowns and gloves were changed along with new set up/instruments used. mastectomy skin incision was made that encompassed the nipple areolar complex in generally oblique direction across the breast. Flaps are raised in the avascular plane between the flap and breast tissue from the clavicle superiorly, the sternum medially, the anterior rectus sheath inferiorly, and posterolateral border of the pectoralis major muscle laterally. Hemostasis was achieved in the flaps. Next, the breast tissue and underlying pectoralis fascia were excised from the pectoralis major muscle, progressing from medial to laterally. At the lateral border of the pectoralis major muscle, the breast tissue was swung laterally and the lateral pedicle identified with the breast tissue gave way to the fat of the axilla. The lateral pedicle was incised and the specimen removed and oriented for pathology. The wound was irrigated with sterile water and hemostasis was achieved. Closed suction drain was brought into the operating field through a separate stab incision and sutured to skin with 3-0 nylon suture on each side. The incision was closed with interrupted 2-0 Vicryl subdermal followed by a subcuticular layer of 4-0 Monocryl and Steri-Strips. The incisions were dressed with ABDs and Mike wrap. The patient tolerated procedure well and sent to postanesthesia care unit in stable condition. Complications none
--- NOTE | 2021-03-31 15:45 | EX.PCM.DISCH ---
Discharge Instructions Procedure Breast Surgery Diet Discharge Diet: No restrictions Activity Discharge Activity: May Not Drive (for 2-3 days or while taking narcotic pain meds.) Lifting Restrictions: 10 pounds for 1 week. Additional Activity Instructions:: Do not shower with JPs in place--- okay to sponge bath or lower shower Dressing / Incision Call your doctor if your incision/area has: Continuous Slow Oozing, Sudden Increased Bleeding, Increased Pain/ Swelling and Increased Redness Call your doctor if you observe: Fever of 101 or Higher Suture Line Care: Avoid Pulling/Pushing Remove Dressing in: 1 day Additional Dressing/Incision Instructions:: Recommend keeping Mike wrap on the chest okay to remove for showers. Keep a log of the ZAYNAB drainage of each side to bring to appointment with you. Make sure to strip JPs twice a day, to prevent them from being clotted Follow Up Care Please Follow Up With: Hilda Lira MD When: Please call [phone] for an appointment to be seen mid next week Test Results: Test results from this visit will be discussed in further detail at your follow-up appointment, if applicable. Discharge Plan Admission Admit Date/Time: 03/31/21 13:47 Attending Provider: Hilda Lira Primary Care Provider: Carlos Alberto Lobo Discharge Orders/Prescriptions Prescriptions: New oxycodone-acetaminophen [Endocet] 5-325 mg tablet 1 tab PO Q6H PRN (Reason: pain) 3 Days Qty: 10 RF: 0 Continued levothyroxine [Synthroid] 75 mcg tablet 75 mcg PO MOTUWETHFRSA RF: 0 meloxicam 7.5 mg tablet 7.5 mg PO BID RF: 0 cholecalciferol (vitamin D3) [Vitamin D3] 50 mcg (2,000 unit) capsule 50 mcg PO DAILY RF: 0 calcium carbonate-vitamin D3 [Calcium 500 + D] 500 mg(1,250mg) -400 unit tablet 1 tab PO DAILY RF: 0 Referrals / Follow Up: Carlos Alberto Lobo DO [Primary Care Provider] - Disposition Disposition (needs filled in before D/C Order can be placed): Home, Self Care
[2021-03-31] MEDS: Dextrose 5%-Lactated Ringers 1,000 ML 100 ML IV (16:57)
[2021-03-31] MEDS: 0.9% Saline Lock 10 ML Syringe IV ×2 (17:01→17:12)
[2021-03-31] MEDS: Acetaminophen 325 MG Tablet 650 MG PO (17:06)
[2021-03-31] MEDS: Ondansetron 4 MG/2 ML Vial IV (17:12)
[2021-03-31] MEDS: Meloxicam 7.5 MG Tablet PO (22:18)
[2021-04-01 00:05] VITALS: BP 143/81; PULSE 67; RESP 16; TEMP 36.5; O2SAT 100
[2021-04-01] MEDS: Dextrose 5%-Lactated Ringers 1,000 ML 100 ML IV (02:57)
[2021-04-01 04:15] VITALS: BP 132/63; PULSE 68; RESP 16; TEMP 36.3; O2SAT 98
[2021-04-01] MEDS: Acetaminophen 325 MG Tablet 650 MG PO (04:21)
[2021-04-01] MEDS: Levothyroxine 75 MCG Tablet PO (05:42)
[2021-04-01 06:22] LABS: Absolute Lymphocyte Count 2.25 X10^3/uL (0.83-4.51); Absolute Neutrophil Count 10.1 X10^3/uL (2.0-7.7); Basophil# 0.02 X10^3/uL; Basophil% 0.1 % (0-1); Eosinophil# 0.13 X10^3/uL; Hematocrit 40.5 % (37-47); Lymphocyte # 2.25 X10^3/ul (0.83-4.51); Lymphocyte % 16.5 % (19-41); Mean Corp Hgb Conc 32.1 g/dL (32-36); Mean Corpuscular Hgb 29.3 pg (27.0-32.0); Mean Corpuscular Volume 91.4 fL (81-99); Mean Platelet Vol. 9.2 fl (6.2-12.0); Monocyte# 1.05 X10^3/uL; Monocyte% 7.7 % (0-10); NRBC Flagged by Analyzer 0 % (0-5); Neutrophil # 10.09 X10^3/uL (2.7-7.7); Neutrophil % 74.3 % (47-70); Platelet Count 252 K/mm3 (150-450); RBC Distribution Width CV 14.4 % (11.6-14.6); RBC Distribution Width SD 48.5 fl (35.1-43.9); Red Blood Count 4.43 M/mm3 (4.2-5.4); White Blood Count 13.6 K/mm3 (4.4-11.0)
[2021-04-01] MEDS: Meloxicam 7.5 MG Tablet PO (08:45)
[2021-04-01 12:27] VITALS: BP 128/60; PULSE 65; RESP 18; TEMP 36.5; O2SAT 99
[2021-04-01 12:28] VITALS: BP 125/74; BP 128/60; BP 148/74; PULSE 66; PULSE 88
--- NOTE | 2021-04-01 14:37 | PCM.DC ---
Discharge Instructions Diet Discharge Diet: No restrictions Activity Additional Activity Instructions:: Do not shower with JPs in place--- okay to sponge bath or lower shower Dressing / Incision Call your doctor if your incision/area has: Continuous Slow Oozing, Sudden Increased Bleeding, Increased Pain/ Swelling and Increased Redness Call your doctor if you observe: Fever of 101 or Higher Suture Line Care: Avoid Pulling/Pushing Additional Dressing/Incision Instructions:: Recommend keeping Mike wrap on the chest okay to remove for showers. Keep a log of the ZAYNAB drainage of each side to bring to appointment with you. Make sure to strip JPs twice a day, to prevent them from being clotted Follow Up Care Please Follow Up With: Hilda Lira MD Test Results: Test results from this visit will be discussed in further detail at your follow-up appointment, if applicable. Discharge Plan Admission Admit Date/Time: 03/31/21 13:47 Attending Provider: Hilda Lira Primary Care Provider: Carlos Alberto Lobo Discharge Orders/Prescriptions Prescriptions: New oxycodone-acetaminophen [Endocet] 5-325 mg tablet 1 tab PO Q6H PRN (Reason: pain) 3 Days Qty: 10 RF: 0 Continued levothyroxine [Synthroid] 75 mcg tablet 75 mcg PO MOTUWETHFRSA RF: 0 meloxicam 7.5 mg tablet 7.5 mg PO BID RF: 0 cholecalciferol (vitamin D3) [Vitamin D3] 50 mcg (2,000 unit) capsule 50 mcg PO DAILY RF: 0 calcium carbonate-vitamin D3 [Calcium 500 + D] 500 mg(1,250mg) -400 unit tablet 1 tab PO DAILY RF: 0 Referrals / Follow Up: Carlos Alberto Lobo DO [Primary Care Provider] - Disposition Disposition (needs filled in before D/C Order can be placed): Home, Self Care
== END 2021-04-01 15:31 | disposition home or self-care (01) ==
LOC: SDC 15:45 → MS2 15:45
PROVIDERS: Anesthesiology; Admitting Provider Surgery; PCP Family Medicine; Referring Provider Surgery; Visit Provider Surgery
PROC: (CPT 19307; principal; 2021-03-31 10:45)
DX: C50.411 Malignant neoplasm of upper-outer quadrant of right female breast (principal); Z40.01 Encounter for prophylactic removal of breast; Z17.0 Estrogen receptor positive status [ER+]; M32.9 Systemic lupus erythematosus, unspecified; M19.90 Unspecified osteoarthritis, unspecified site; F41.9 Anxiety disorder, unspecified; F45.29 Other hypochondriacal disorders; E07.9 Disorder of thyroid, unspecified; Z79.899 Other long term (current) drug therapy; Z79.890 Hormone replacement therapy; Z86.2 Personal history of diseases of the blood and blood-forming organs and certain disorders involving the immune mechanism
CPT/HCPCS: 00400; 19303; 38525; 36415; 38792; 80048; 80076; 85025; 85027; 85610; 85730; 87426; 88305; 88307; 88331; 88332; 88341; 88342; 93005; 96361; 96374; 99218; 99251; A9541; C9803; J7120; A4216; G0378; G0463; J2405; J3490; Q9968

== ENCOUNTER → 2021-04-22 09:05 | Outpatient (CLI) | payer BC, SELFPAY ==
[2021-04-22 10:52] LABS: Absolute Lymphocyte Count 2.05 X10^3/uL (0.83-4.51); Absolute Neutrophil Count 3.9 X10^3/uL (2.0-7.7); Basophil# 0.05 X10^3/uL; Basophil% 0.7 % (0-1); Eosinophil# 0.45 X10^3/uL; Eosinophils% 6.3 % (0-5); Hematocrit 43.1 % (37-47); Hemoglobin 13.7 g/dL (12.0-15.0); Lymphocyte # 2.05 X10^3/ul (0.83-4.51); Lymphocyte % 28.6 % (19-41); Mean Corp Hgb Conc 31.8 g/dL (32-36); Mean Corpuscular Hgb 29.6 pg (27.0-32.0); Mean Corpuscular Volume 93.1 fL (81-99); Mean Platelet Vol. 8.9 fl (6.2-12.0); Monocyte# 0.68 X10^3/uL; Monocyte% 9.5 % (0-10); NRBC Flagged by Analyzer 0 % (0-5); Neutrophil # 3.93 X10^3/uL (2.7-7.7); Neutrophil % 54.6 % (47-70); Platelet Count 326 K/mm3 (150-450); RBC Distribution Width CV 14.9 % (11.6-14.6); Red Blood Count 4.63 M/mm3 (4.2-5.4); White Blood Count 7.2 K/mm3 (4.4-11.0)
[2021-04-22 11:33] LABS: ALB/GLOB Ratio 1.1 RATIO (0.9-2.4); AST(SGOT) 27 U/L (15-37); Alanine Aminotransfer ALT/SGPT 36 U/L (13-56); Albumin, Serum 3.8 g/dL (3.2-5.0); Alkaline Phosphatase 82 U/L (45-117); Anion Gap 6 (5-15); BUN 15 mg/dL (7-18); BUN/Creat Ratio 16.4 RATIO (10-20); Calcium,Total 9.2 mg/dL (8.5-10.1); Chloride 106 mmol/L (98-107); Cholesterol 251 mg/dL (200); Creatinine, Serum 0.91 mg/dL (0.55-1.02); EST Glomerular Filtration Rate 66 mL/min (>60); Est Glom Filt Rate - Afr Amer 80 mL/min (>60); Globulin 3.5 g/dL (2.2-4.2); Glucose 83 mg/dL (74-106); High Density Lipoprotein 77 mg/dL; Potassium 4.8 mmol/L (3.5-5.1); Protein, Total 7.3 g/dL (6.4-8.2); Sodium Level 142 mmol/L (136-145); T4 Free Direct 1.18 ng/dL (0.76-1.46); Thyroid Stim Hormone (TSH) 2.46 uIU/mL (0.358-3.74); Triglycerides 86 mg/dL; Very Low Density Lipoprotein 17 mg/dL (5-40)
[2021-04-24 10:51] LABS: Vitamin D,25 Hydroxy 47.5 ng/mL
== END ==
PROVIDERS: PCP Family Medicine; Referring Provider Family Medicine; Visit Provider Family Medicine
DX: Z00.00 Encounter for general adult medical examination without abnormal findings (principal); E03.9 Hypothyroidism, unspecified; E55.9 Vitamin D deficiency, unspecified
CPT/HCPCS: 36415; 80053; 80061; 82306; 84439; 84443; 85025

== ENCOUNTER → 2021-07-03 12:32 | Outpatient (CLI) | payer BC, SELFPAY | PROVIDERS: PCP Family Medicine; Visit Provider Family Medicine | DX: U07.1 COVID-19 (principal) | CPT/HCPCS: 87633; 87635; U0005; U0003 ==

== ENCOUNTER 2021-07-05 12:18 | Outpatient (CLI) | payer BC, SELFPAY ==
[2021-07-05 12:18] VITALS: BP 141/76; PULSE 76; RESP 16; TEMP 36.8; O2SAT 100; BMI 18.8
[2021-07-05] MEDS: 0.9% Saline Lock 10 ML Syringe IV (12:23)
[2021-07-05 12:55] VITALS: BP 138/83; PULSE 66; RESP 16; TEMP 36.4; O2SAT 100
[2021-07-05 13:46] VITALS: BP 151/78; PULSE 80; RESP 16; TEMP 36.8; O2SAT 100
== END 2021-07-05 13:55 | disposition home or self-care (01) ==
LOC: MS3OUT 12:19 → MS3 12:19
PROVIDERS: PCP Family Medicine; Referring Provider Nurse Practitioner Adult Health; Visit Provider Nurse Practitioner Adult Health
DX: Z23 Encounter for immunization (principal); U07.1 COVID-19
CPT/HCPCS: J7050; M0245; Q0245; A4216

== ENCOUNTER → 2022-04-02 | Outpatient (CLI) | payer OTHER, SELFPAY ==
--- NOTE | 2022-04-02 15:12 | MRI_ITS ---
EXAM: MR LUMBAR SPINE WITHOUT INTRAVENOUS CONTRAST CLINICAL INDICATION: SCIATIC RT LEG X 1 YEAR,LEG CRAMPING,FOOT DROP TECHNIQUE: Multiplanar and multisequence MR images of the lumbar spine without intravenous contrast. Magnetic field strength 1.5 T. This report was created using [employer] report Smart [employer]ener technology. COMPARISON: None. FINDINGS: VERTEBRAE: Mild curvature of the lumbar spine convex to the right. Vertebral body heights are preserved. No spondylolisthesis. SPINAL CORD: Unremarkable. Normal position and signal intensity of the conus medullaris. SOFT TISSUES: Unremarkable. DISCS/SPINAL CANAL/NEURAL FORAMINA: L1-L2: Unremarkable. Normal disc height and morphology. Normal spinal canal and lateral recesses. Normal neuroforamina. L2-L3: Moderate disc space narrowing. Mild generalized disc bulge. Bilateral moderate facet arthropathy and ligamentum flavum thickening. Mild left neural foraminal narrowing. Normal spinal canal and lateral recesses. L3-L4: Mild generalized disc bulge. No spinal canal, lateral recess, or neural foraminal stenosis. Moderate bilateral facet arthropathy and ligamentum flavum thickening. L4-L5: Slight anterior subluxation of L4 on L5 measuring 3 mm. Mild generalized disc bulge. AP diameter of the canal measures 9 mm. Severe facet arthropathy bilaterally with small bilateral facet effusions. No foraminal stenosis. L5-S1: Central disc protrusion extending posteriorly about 5 mm. AP diameter of the canal measures 6 mm. No lateral recess or foraminal stenosis. No specific nerve root impingement. Mild bilateral facet arthropathy. MRI/Spine Lumbar (Routine) IMPRESSION: 1. Central disc protrusion extending posteriorly about 5 mm L5-S1 with moderate spinal stenosis. No focal nerve root impingement or neural foraminal stenosis. 2. Slight anterior subluxation of L4 and L5 measuring 3 mm with borderline spinal stenosis. Severe facet arthropathy bilaterally with small bilateral facet effusions. No focal nerve root impingement identified. 3. Spondylitic changes L2-3 and L3-4 without spinal canal, foraminal, or lateral recess stenosis. Electronically Signed: Italo Santiago MD at 4:29 EDT ,
== END | disposition home or self-care (01) ==
LOC: MRI 14:53
PROVIDERS: PCP Family Medicine; Referring Provider Family Medicine; Visit Provider Family Medicine
DX: M54.16 Radiculopathy, lumbar region (principal); M21.371 Foot drop, right foot
CPT/HCPCS: 72148

== ENCOUNTER 2022-04-11 19:48 | Emergency (ER) | payer OTHER, SELFPAY ==
[2022-04-11 19:48] VITALS: BP 151/72; PULSE 88; RESP 15; TEMP 36.6; O2SAT 99; BMI 18.8
--- NOTE | 2022-04-11 20:56 | EDS_ITS ---
HPI HPI - Fall History of Present Illness Chief Complaint: Fall Informant: patient Narrative Narrative: 61-year-old female presenting to the emergency room with head injury. Patient states that she has chronic foot drop. This resulted in her having a fall striking the right side of her head. She notes laceration to the right eyebrow region. She has a history of breast cancer is on tamoxifen. No blood thinners. No loss of consciousness nausea vomiting or severe headache. No neck pain. Tetanus Immunization: 5-10 years PFSH PFSH Medical History Anxiety Arthritis Arthritis Breast CA Breast cancer Cancer Easy bruising Excessive bleeding History of echocardiogram History of edema History of pain when walking Lupus Non-smoker Thyroid disorder Wears glasses Home Medications levothyroxine 75 mcg tablet (Synthroid) 75 mcg PO MOTUWETHFRSA 03/02/21 [History Last Taken 03/31/21] meloxicam 7.5 mg tablet 7.5 mg PO BID 03/02/21 [History Last Taken Unknown] calcium carbonate 500 mg-vitamin D3 10 mcg (400 unit) tablet (Calcium 500 + D) 1 tab PO DAILY 03/15/21 [History Last Taken Unknown] cholecalciferol (vitamin D3) 50 mcg (2,000 unit) capsule (Vitamin D3) 50 mcg PO DAILY 03/15/21 [History Last Taken Unknown] tamoxifen 10 mg tablet 10 mg PO BID 90 days #180 tabs 06/13/21 [Rx Last Taken Unknown] Allergy/AdvReac Type Severity Reaction Status Date / Time prednisone Allergy Intermediate Severe Verified 04/11/22 19:55 Headaches cortisone Allergy Mild Shrunk Verified 04/11/22 19:55 muscle in arm amoxicillin Allergy Unknown Unknown Verified 04/11/22 19:55 cimetidine [From Tagamet] Allergy Unknown Unknown Verified 04/11/22 19:55 Family History Father Heart disease Aunt Breast cancer, Onset Age: 70 paternal Uncle Prostate cancer paternal Uncle Cancer head/neck (throat) paternal Surgical History History of hysterectomy History of parathyroid surgery History of tonsillectomy History of tubal ligation S/P bilateral mastectomy Social History Smoking Status: Never smoker alcohol intake: never substance use type: does not use caffeine: Yes Type: coffee Number of servings: 3 what type of physical activity do you participate in: walking frequency: 3-4 times per week ROS ROS ED Constitutional Constitutional ED: Denies chills or weight loss Eyes Eyes: Denies change in vision or diplopia ENT ENT ED: Denies ear pain, rhinorrhea or sore throat Cardiovascular Cardiovascular: Denies chest pain, orthopnea, palpitations or racing heartbeat Respiratory/Chest Respiratory/Chest: Denies cough, dyspnea or orthopnea Gastrointestinal Gastrointestinal: Denies abdominal pain, diarrhea, nausea or vomiting Genitourinary Genitourinary ED: Denies dysuria, hematuria or urinary frequency Musculoskeletal Musculoskeletal: Denies arthralgias or myalgias Integumentary Reports other Details: See history of present illness ; Denies abscess or rash Neurologic Neurologic: Denies headache(s) or weakness Psychiatric Psychiatric: Denies anxiety, depression, suicidal ideation or suicidal thoughts Endocrine Endocrinology: Denies polydipsia, polyphagia or polyuria Allergic/Immunologic Allergic/Immunologic ED: Denies mouth swelling, tongue swelling or urticaria EXAM Physical Exam Const Vital Signs: 04/11/22 19:48 Temperature 97.8 F Temperature Source Temporal Pulse Rate 88 Respiratory Rate 15 Blood Pressure 151/72 H Blood Pressure Mean 98 Pulse Ox 99 Oxygen Delivery Method Room Air Positive well nourished and well developed General Appearance ED: well developed HEENT Reports normocephalic, head/scalp atraumatic and moist mucous membranes HEENT Narrative: There is a 2 cm linear laceration of the right eyebrow. Wound edges are gaping. Bleeding controlled. Patient is able to wrinkle her eyebrows. Eyes PERRL and EOMs intact bilaterally Neck no lymphadenopathy, supple and no JVD Resp normal respiratory effort and clear to auscultation bilaterally Cardio regular rate, regular rhythm and no murmurs GI normal to inspection, nondistended, normoactive bowel sounds and non-tender Palpation: soft Back/Spine no CVA tenderness and normal ROM Extremity normal to inspection General Extremety ED: Negative for edema General Extremity: Negative for edema Neuro oriented x3 and CN's II-XII intact bilaterally Sensorium / Orientation: alert Motor Exam: strength 5/5 throughout Psych mental status grossly normal Mood & Affect: Negative for depressed or tearful Skin no rashes or lesions noted and no wounds MDM MDM MDM Narrative Medical decision making narrative: The wound was locally anesthetized using 1% lidocaine. Is washed with Shur- Clens and explored. The wound was relatively clean. The wound was closed using simple interrupted Rapide stitches. Wound edges well approximated. Able to wrinkle her forehead before and after procedure. Wound care discussed with patient will return if worsening or concerns. Stitches are dissolvable. Discharge Plan Triage Chief Complaint: Fall ED Provider: Jarvis Osullivan Dx/Rx/DC Orders Prescriptions: No Action levothyroxine [Synthroid] 75 mcg tablet 75 mcg PO MOTUWETHFRSA Rx Instructions: Skip Saturday meloxicam 7.5 mg tablet 7.5 mg PO BID cholecalciferol (vitamin D3) [Vitamin D3] 50 mcg (2,000 unit) capsule 50 mcg PO DAILY calcium carbonate-vitamin D3 [Calcium 500 + D] 500 mg(1,250mg) -400 unit tablet 1 tab PO DAILY tamoxifen 10 mg tablet 10 mg PO BID 90 Days Qty: 180 3RF Primary Care Provider: Carlos Alberto Lobo Referrals: Carlos Alberto Lobo DO [Primary Care Provider] -
[2022-04-11] MEDS: Lidocaine 1% (20 ml mdv) 20 ML Vial INFILT (21:13)
== END 2022-04-11 21:16 | disposition home or self-care (01) ==
PROVIDERS: Emergency Provider Emergency Medicine; PCP Family Medicine; Visit Provider Emergency Medicine
DX: S01.111A Laceration without foreign body of right eyelid and periocular area, initial encounter (principal); M21.379 Foot drop, unspecified foot; Z85.3 Personal history of malignant neoplasm of breast; W01.10XA Fall on same level from slipping, tripping and stumbling with subsequent striking against unspecified object, initial encounter
CPT/HCPCS: 12011; 99283

== ENCOUNTER → 2022-05-15 | Outpatient (CLI) | payer OTHER, SELFPAY ==
[2022-05-15 11:18] LABS: Cholesterol 185 mg/dL (200); High Density Lipoprotein 68 mg/dL; T4 Free Direct 1.09 ng/dL (0.76-1.46); Thyroid Stim Hormone (TSH) 6.02 uIU/mL (0.358-3.74); Triglycerides 93 mg/dL; Very Low Density Lipoprotein 19 mg/dL (5-40)
== END | disposition home or self-care (01) ==
LOC: LAB 09:47
PROVIDERS: PCP Family Medicine; Referring Provider Family Medicine; Visit Provider Family Medicine
DX: Z00.00 Encounter for general adult medical examination without abnormal findings (principal); E03.9 Hypothyroidism, unspecified
CPT/HCPCS: 36415; 80061; 84439; 84443

== ENCOUNTER → 2022-06-06 | Outpatient (CLI) | payer OTHER, SELFPAY ==
--- NOTE | 2022-06-06 14:04 | NEURO ---
NCS and/or EMG Patient Report Ordering Doctor: Salvador Malin DATE OF SERVICE: 06/06/22 Christine presents electrodiagnostic testing of the right lower limb. She reports intermittent numbness and tingling of the right leg with intermittent weakness Electrodiagnostic findings: Right peroneal motor nerve demonstrates normal distal latency with reduced amplitude and reduced conduction velocity. There is a drop in conduction velocity across the fibular head. Right tibial motor responses within normal limits. Prolonged right peroneal F-wave. H reflex is borderline prolonged bilaterally. Sensory responses in the right lower limb are not obtainable. Needle EMG, all muscles tested in the right lower limb, as well as the right lumbar paraspinal showed no evidence of denervation with normal motor unit action potentials. Electrodiagnostic impression: This is an abnormal study in the right lower limb 1. 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 There is also diminished right peroneal amplitude, suggestive of axonal loss. 2. Consider correlation with left lower limb to better evaluate for possible sensory polyneuropathy. 3. There is no electrodiagnostic evidence for lumbosacral radiculopathy.
== END | disposition home or self-care (01) ==
LOC: PSN 12:16
PROVIDERS: PCP Family Medicine; Visit Provider Orthopaedic Surgery
DX: M21.371 Foot drop, right foot (principal)
CPT/HCPCS: 95886; 95911

== ENCOUNTER → 2023-04-09 | Outpatient (CLI) | payer OTHER, SELFPAY ==
--- NOTE | 2023-04-09 11:04 | RAD_ITS ---
STUDY: X-RAY - LEFT KNEE REASON FOR EXAM: Female, 62 years old. Left knee pain - standing. TECHNIQUE: 4 views of the left knee. COMPARISON: None. FINDINGS: Normal visualized distal femur. Normal visualized proximal tibia and fibula. Normal proximal tibiofibular articulation. There is no demonstrated fracture. There is severe degenerative arthrosis of the medial femorotibial compartment with severe joint space narrowing. There is mild degenerative arthrosis of the lateral femorotibial compartment. There is mild degenerative arthrosis of the patellofemoral articulation. There is a moderate volume joint effusion. The soft tissue structures are unremarkable. RAD/Knee 4 or More Views IMPRESSION: Tricompartment degenerative arthrosis, most severe in the medial femorotibial compartment. Moderate joint effusion. No demonstrated fracture. Electronically Signed: Sandeep Barbour MD at 9:39 EDT ,
== END | disposition home or self-care (01) ==
PROVIDERS: PCP Family Medicine; Referring Provider Family Medicine; Visit Provider Family Medicine
DX: M25.562 Pain in left knee (principal); M81.0 Age-related osteoporosis without current pathological fracture
CPT/HCPCS: 73564; 77080

== ENCOUNTER → 2024-03-17 | Outpatient (CLI) | payer OTHER, SELFPAY ==
[2024-03-17 17:57] LABS: Cholesterol 182 mg/dL (200); High Density Lipoprotein 67 mg/dL; Thyroid Stim Hormone (TSH) 0.239 uIU/mL (0.358-3.740); Triglycerides 145 mg/dL; Very Low Density Lipoprotein 29 mg/dL (5-40)
[2024-03-17 20:49] LABS: Vitamin D,25 Hydroxy 43.1 ng/mL
== END | disposition home or self-care (01) ==
LOC: BFHLAB 16:03
PROVIDERS: PCP Family Medicine; Referring Provider Family Medicine; Visit Provider Family Medicine
DX: E03.9 Hypothyroidism, unspecified (principal); E78.5 Hyperlipidemia, unspecified; M85.80 Other specified disorders of bone density and structure, unspecified site
CPT/HCPCS: 36415; 80061; 82306; 84443

== ENCOUNTER 2024-05-25 07:15 | Day surgery (SDC) | payer MEDICARE, OTHER, SELFPAY ==
[2024-05-25] VITALS (7 sets, daily range): BP systolic 99–131; BP diastolic 63–90; PULSE 16–97; RESP 16–18; TEMP 36.1–36.4; O2SAT 96–100; BMI 19.1
--- NOTE | 2024-05-25 07:26 | H&P.OPEN ---
[facility] - General General Date of Service: 05/25/24 HPI Narrative MARIANNA SMITH, is a 64 F who presents for screening colonoscopy. Patient never had previous colonoscopy. Patient denies any family history of colon cancer. Patient's brother did have polyps unsure of size. Patient denies any chronic abdominal pain/nausea/vomiting/reflux. Patient has bowel movements daily denies any blood. [facility] [place] Medical History Wears contact lenses Post-menopausal Back pain History of hiatal hernia Heartburn Inflammatory polyarthritis Breast CA Wears glasses Cancer Anxiety Arthritis Easy bruising Excessive bleeding Non-smoker History of pain when walking History of edema History of echocardiogram Breast cancer Arthritis Thyroid disorder Lupus Home Medications ?Medication ?Instructions ?Recorded ?Last Taken ?Type cholecalciferol (vitamin D3) 50 50 mcg PO DAILY 03/15/21 05/24/24 History mcg (2,000 unit) capsule (Vitamin D3) levothyroxine 75 mcg tablet 75 mcg PO DAILY 10/08/23 05/25/24 History (Synthroid) meloxicam 15 mg tablet 15 mg PO DAILY 10/08/23 05/24/24 History tamoxifen 10 mg tablet 10 mg PO BID 90 days #180 tabs 04/28/24 05/24/24 Rx Allergy/AdvReac Type Severity Reaction Status Date / Time prednisone Allergy Intermediate Severe Verified 05/25/24 07:28 Headaches cortisone Allergy Mild Shrunk Verified 05/25/24 07:28 muscle in arm amoxicillin Allergy Unknown PT UNSURE Verified 05/25/24 07:28 OF REACTION cimetidine (From Tagamet) Allergy Unknown PT UNSURE Verified 05/25/24 07:28 OF REACTION Family History Father Heart disease Aunt Breast cancer, Onset Age: 70 paternal Uncle Prostate cancer paternal Uncle Cancer head/neck (throat) paternal Brother Colon polyps Surgical History S/P bilateral mastectomy History of tonsillectomy History of tubal ligation History of hysterectomy History of parathyroid surgery Social History household members: spouse current occupational status: retired Smoking Status: Never smoker alcohol intake: never substance use type: does not use caffeine: Yes Type: coffee Number of servings: 3 what type of physical activity do you participate in: walking frequency: 3-4 times per week Past Medical/Surgical History Planned Operation Planned Operative Procedure(s): COLONOSCOPY-OA Previous Hospitalizations/Surgeries HX Hospitalizations: No HX of Surgeries: bilat mastectomy, thyroid, hyster, Any Problems With Anesthesia: Yes (SLOW TO AWAKEN, N&V) You/Your Family Experience Fever (Hyperthermia) With Anes: No Cholinesterase deficiency: No Cardiovascular Hx of Irregular Heartbeat and/or Afib: No Hx Heart Attack: No Hx Congestive Heart Failure: No Hx Hypertension: No Hx Pacemaker: No Respiratory Hx Chronic Obstructive Pulmonary Disease (COPD): No Hx Asthma: No Hx Emphysema: No Hx Sleep Apnea: No Hx Respiratory Tract Infection/Cold (presently): No Do You Snore Loudly (louder than talking or can be heard): No Do You Often Feel Tired/ Fatigued/ Sleepy Dring Daytime?: No Has Anyone Observed You Stop Breathing During Sleep?: No Result (for STOP score): Negative Smoking Status: Never smoker Gastrointestinal Hx Ulcer: No Neurological Hx Seizures: No Hx Head/Neck Injury: No Hx Headaches: Yes Hx Back Injury/Pain: No Does patient have nerve stimulator: No Reproduction : No Genitourinary Hx Renal Disease: No Endocrine Hx Diabetes: No Miscellaneous Hx Cancer: Yes Recent Exposure to Contagious Disease: No Allergies prednisone Allergy (Intermediate, Verified 05/25/24 07:28) Severe Headaches cortisone Allergy (Mild, Verified 05/25/24 07:28) Shrunk muscle in arm amoxicillin Allergy (Unknown, Verified 05/25/24 07:28) PT UNSURE OF REACTION cimetidine (From Tagamet) Allergy (Unknown, Verified 05/25/24 07:28) PT UNSURE OF REACTION Discharge Is Pt Admitted From a Custodial, or a Alf: No After D/C, Where Do you Plan to Go: Return Home From the PAT History Number of Risk Factors: 1 Physical Exam Const alert, oriented x3 and no apparent distress HEENT normocephalic and head/scalp atraumatic Resp normal respiratory effort Cardio regular rate GI soft to palpation and non-tender; Negative for non-distended Palpation: Negative for guarding Extremity no clubbing, cyanosis or edema Skin no rashes or lesions noted Neuro CN's II-XII intact bilaterally Psych mental status grossly normal Assessment & Plan Assessment/Plan (1) Screening for colon cancer: Surgery Risks - Colonoscopy I discussed with the patient the risks of the procedure: Yes Risks Include but are not Limited To: Risks include but are not limited to: Bleeding, perforation requiring further surgery, inability to complete colonoscopy requiring barium enema.
--- NOTE | 2024-05-25 07:46 | PCM.PRE.AN2 ---
ASA Classification* ASA Classification ASA Classification: 2 Assessment & Plan Anesthesia* Anesthesia Assessment Anesthesia Assessment: Discussed sedation and/or anesthesia options, risks, benefits, and alternatives with patient/parents/legal guardian/POA. Questions invited. The patient/parents/legal guardian/POA seems to understand and agrees to proceed with anesthesia plan. Reviewed the physical assessment, medical history, allergy history and patient home medications list prior to surgery/procedure/anesthetic and documented any changes. Performed airway and anesthesia risk assessments. Anesthesia Type Anesthesia Type: MAC Anesthesia Focused Assessment* Temperature: 97.6 F Pulse Rate: 97 Blood Pressure: 131/90 Respiratory Rate: 18 Pulse Ox: 100 Airway Assessment Mouth opens: >3 cm Mallampati Score: II Focused Labs Anesthesia Preop lab: CBC WBC 8.6 K/mm3 (4.4-11.0) 04/28/24 12:59 RBC 4.56 M/mm3 (4.2-5.4) 04/28/24 12:59 Hgb 13.6 g/dL (12.0-15.0) 04/28/24 12:59 Hct 42.2 % (37-47) 04/28/24 12:59 Plt Count 262 K/mm3 (150-450) 04/28/24 12:59 CHEMISTRY Potassium 4.4 mmol/L (3.5-5.1) 04/28/24 12:59 Sodium 143 mmol/L (136-145) 04/28/24 12:59 Magnesium 2.0 mg/dL (1.8-2.4) 09/18/14 11:43 Phosphorus 3.1 mg/dL (2.5-4.9) 09/18/14 11:43 BUN 16 mg/dL (7-18) 04/28/24 12:59 Creatinine 1.00 mg/dL (0.55-1.02) 04/28/24 12:59 Glucose 87 mg/dL (74-106) 04/28/24 12:59 TSH 0.239 uIU/mL (0.358-3.740) L 03/17/24 16:04 COAG PT 13.0 SECONDS (11.7-14.9) 03/29/21 16:48 Pre-Assessment Diagnosis/Proposed Procedure Planned Operative Procedure(s): COLONOSCOPY-OA Anesthesia History Anesthesia History - supervisor machine workers: Anesthesia History - supervisor machine workers Hx Hospitalization No 05/25/24 07:27 Any Problems With Anesthesia Yes: SLOW TO AWAKEN, N&V 05/25/24 07:27 Cholinesterase deficiency No 05/25/24 07:27 You/Your Family Experience No 05/25/24 07:27 fever (hyperthermia) with Relationship Recent Exposure to Contagious No 05/25/24 07:29 Disease Does patient have nerve No 05/25/24 07:27 stimulator Patient instructed to have device shut off --Does patient have Pacemaker No 05/25/24 07:29 or ICD? When Was Last Pacemaker Check QUESTION #4 FULL TEXT: You/Your Family Experience fever (hyperthermia) with Anesthesia Last Oral Intake Last Oral intake: Last Oral Intake NPO since 18:00 05/25/24 07:29 Meds taken in AM with sips of Yes 05/25/24 07:29 water? Meds patient instructed to take am of surgery PONV PONV - supervisor machine workers: PONV - supervisor machine workers Female Yes 05/20/24 09:28 HX of Motion Sickness No 05/20/24 09:28 HX of N/V After Surgery No 05/20/24 09:28 Non-Smoker Yes 05/20/24 09:28 Duration of Surgery greater No 05/20/24 09:28 than 60 minutes Number of Risk Factors 2 05/20/24 09:28 PONV Score Moderate Risk 05/20/24 09:28 Height & Weight Height & Weight: Anesthesia: Height & Weight Height 5 ft 1 in 05/25/24 07:29 Weight: 46 kg 05/25/24 07:29 Body Mass Index (BMI) 19.1 05/25/24 07:29 Respiratory Assessment Respiratory Assessment - supervisor machine workers: Respiratory Tract Infection Hx - supervisor machine workers Hx Respiratory Tract Infection No 05/25/24 07:27 STOP Sleep Apnea STOP Sleep Apnea - supervisor machine workers: STOP Sleep Apnea - supervisor machine workers Hx Hypertension No 05/25/24 07:27 Hx Sleep Apnea No 05/25/24 07:27 CPAP BIPAP Do you snore loudly (louder No 05/25/24 07:27 than talking or can be heard Do you often feel tired/ No 05/25/24 07:27 fatigued/ sleepy during daytime? Has anyone observed you stop No 05/25/24 07:27 breathing during sleep? STOP Results Negative 05/25/24 07:27 QUESTION #5 FULL TEXT : Do you snore loudly (louder than talking or can be heard through closed doors)? Tobacco Use History Tobacco Use History - supervisor machine workers: Tobacco Use History - supervisor machine workers Tobacco Use Smoking Status Never smoker 05/25/24 07:27 Hx Tobacco Use No 05/20/24 09:28 Years Smoking Packs Smoked per Day Smoking Cessation Date was within the last 15 years Hx Smoking Cessation Date Hx Smoking Cessation Counseling Hematologic Medial History Hematologic Hx - supervisor machine workers: Hematologic Medical Hx - client account specialist Hx of Blood Transfusion No 05/20/24 09:28 Hx of Transfusion in last 3 No 05/20/24 09:28 Months Date of Last Transfusion (if within last 3 months) Ever experience any problems No 05/20/24 09:28 with transfusion(s)? Specify any problems Hx of Preganancy in last 3 No 05/20/24 09:28 Months Nurse Filling Out Transfusion VCHRISTIN 05/20/24 09:28 & Questions: Date: 05/20/24 05/20/24 09:28 Time: 09:29 05/20/24 09:28 Patient unable to answer at this time (ie. confused, unrespo /Reproduction History /Reproductive History - supervisor machine workers: /Reproductive Hx- supervisor machine workers Hx Now No 05/25/24 07:27 Gestational Age (in weeks): EDC: Hx Hx Para Hx Section SAB No 05/20/24 09:28 [facility] Medical History Wears contact lenses Post-menopausal Back pain History of hiatal hernia Heartburn Inflammatory polyarthritis Breast CA Wears glasses Cancer Anxiety Arthritis Easy bruising Excessive bleeding Non-smoker History of pain when walking History of edema History of echocardiogram Breast cancer Arthritis Thyroid disorder Lupus Home Medications ?Medication ?Instructions ?Recorded ?Last Taken ?Type cholecalciferol (vitamin D3) 50 50 mcg PO DAILY 03/15/21 05/24/24 History mcg (2,000 unit) capsule (Vitamin D3) levothyroxine 75 mcg tablet 75 mcg PO DAILY 10/08/23 05/25/24 History (Synthroid) meloxicam 15 mg tablet 15 mg PO DAILY 10/08/23 05/24/24 History tamoxifen 10 mg tablet 10 mg PO BID 90 days #180 tabs 04/28/24 05/24/24 Rx Allergy/AdvReac Type Severity Reaction Status Date / Time prednisone Allergy Intermediate Severe Verified 05/25/24 07:28 Headaches cortisone Allergy Mild Shrunk Verified 05/25/24 07:28 muscle in arm amoxicillin Allergy Unknown PT UNSURE Verified 05/25/24 07:28 OF REACTION cimetidine (From Tagamet) Allergy Unknown PT UNSURE Verified 05/25/24 07:28 OF REACTION Family History Father Heart disease Aunt Breast cancer, Onset Age: 70 paternal Uncle Prostate cancer paternal Uncle Cancer head/neck (throat) paternal Brother Colon polyps Surgical History S/P bilateral mastectomy History of tonsillectomy History of tubal ligation History of hysterectomy History of parathyroid surgery Social History household members: spouse current occupational status: retired Smoking Status: Never smoker alcohol intake: never substance use type: does not use caffeine: Yes Type: coffee Number of servings: 3 what type of physical activity do you participate in: walking frequency: 3-4 times per week Review of Systems (Anesthesia) ROS Narrative System reviewed and no additional complaints, except as documented.
--- NOTE | 2024-05-25 08:30 | COLBX_PTH ---
PATIENT: MARIANNA SMITH LOC: EN U#:[id number] AGE/SX: 64/F ROOM: RE05/25/[address]: Dr. Hilda Lira MD : 1960 BED: DIS: 05/25/2024 SPEC #: [id number] RECD: 05/25/24 09:44 STATUS: CORNELIUS REMarianela #: [id number] MONIKA: 05/25/24 08:[address]: Hilda Lira DEPT: SURGICAL PATHOLOGY RECD BY: Alberto Kent ENTERED: 05/25/24 10:25 SP TYPE: COLON BX OTHR DR: Dr. Carlos Alberto Lobo, Tissues: A - Ascending colon B - Sigmoid colon biopsy Procedures: Surgery Specimen Level IV HEADER OPERATION: Colonoscopy with biopsy PRE-OP DIAGNOSIS: Screening for colon cancer TISSUE SUBMITTED: A- Ascending polyp biopsy, B- Sigmoid polyp biopsy MICROSCOPIC DIAGNOSIS A. Ascending polyp, biopsy: Tubular adenoma. B. Sigmoid polyp, biopsy: Fragments of colonic mucosa with small focus of adenomatous change. DANIKA. 05/26/2024 MICROSCOPIC DESCRIPTION Slides are reviewed. GROSS DESCRIPTION A. Received in fixative is one container labeled with the patient's name and designated Ascending colon polyp biopsy. The specimen consists of one irregular fragment of dorantes soft tissue that measuring 0.3cm in greatest dimension. The specimen is totally submitted in one cassette. B. Received in fixative is one container labeled with the patient's name and designated Sigmoid polyp biopsy. The specimen consists of one irregular fragment of dorantes soft tissue that measuring 0.3cm in greatest dimension. The specimen is totally submitted in one cassette. 05/25/2024 TC:5 CPT:27867a7
--- NOTE | 2024-05-25 09:01 | OP.COLON_ITS ---
Patient Name: Christine Hobson Procedure Date: 05/25/2024 8:31 AM Date of : 1960 Age: 64 Procedure: Colonoscopy Indications: Screening for colorectal malignant neoplasm Providers: Hilda Lira MD Referring MD: Carlos Alberto Lobo Medicines: Monitored Anesthesia Care Patient Profile: Last Colonoscopy: none. The patient's first colonoscopy is today. Complications: No immediate complications. Procedure: Pre-Anesthesia Assessment: - Prior to the procedure, a History and Physical was performed, and patient medications and allergies were reviewed. The patient's tolerance of previous anesthesia was also reviewed. The risks and benefits of the procedure and the sedation options and risks were discussed with the patient. All questions were answered, and informed consent was obtained. Prior Anticoagulants: The patient has taken no anticoagulant or antiplatelet agents. ASA Grade Assessment: Per anesthesia. After reviewing the risks and benefits, the patient was deemed in satisfactory condition to undergo the procedure. After I obtained informed consent, the scope was passed under direct vision. Throughout the procedure, the patient's blood pressure, pulse, and oxygen saturations were monitored continuously. The pediatric colonoscope was introduced through the anus and advanced to the cecum, identified by the appendiceal orifice, ileocecal valve and palpation. The colonoscopy was performed without difficulty. The patient tolerated the procedure well. The quality of the bowel preparation was adequate. Scope In: 8:38:48 AM Scope Withdrawal Time 0 hours 9 minutes 8 seconds Scope Out: 8:55:24 AM Total Procedure Duration Time 0 hours 16 minutes 36 seconds Findings: The perianal and digital rectal examinations were normal. Two sessile polyps were found in the sigmoid colon and ascending colon. The polyps were less than 5 mm in size. These polyps were removed with a cold biopsy forceps. Resection and retrieval were complete. Scattered small-mouthed diverticula were found in the sigmoid colon, descending colon and transverse colon. The exam was otherwise without abnormality on direct and retroflexion views. Impression: - Two less than 5 mm polyps in the sigmoid colon and in the ascending colon, removed with a cold biopsy forceps. Resected and retrieved. - Diverticulosis in the sigmoid colon, in the descending colon and in the transverse colon. - The examination was otherwise normal on direct and retroflexion views. Recommendation: - Discharge patient to home. - High fiber diet. - Continue present medications. - Await pathology results. - Repeat colonoscopy in 5 years for surveillance based on pathology results. Procedure Code(s): --- Professional --- 49733, PT, Colonoscopy, flexible; with biopsy, single or multiple Diagnosis Code(s): --- Professional --- Z12.11, Encounter for screening for malignant neoplasm of colon D12.2, Benign neoplasm of ascending colon D12.5, Benign neoplasm of sigmoid colon K57.30, Diverticulosis of large intestine without perforation or abscess without bleeding CPT copyright 2021 [employer]. All rights reserved. The codes documented in this report are preliminary and upon educational administrator review may be revised to meet current compliance requirements. MD Hilda Jackson MD 05/25/2024 9:01:01 AM This report has been signed electronically. Number of Addenda: 0 Note Initiated On: 05/25/2024 8:31 AM
--- NOTE | 2024-05-25 09:01 | OP.CCLET_ITS ---
05/25/2024 Carlos Alberto Lobo [address] [place] [address] Re : Colonoscopy procedure for Christine Hobson Dear Dr. Lobo This procedure was performed on Saturday, May 25, 2024. My impressions and recommendations are as follows: Impressions : - Two less than 5 mm polyps in the sigmoid colon and in the ascending colon, removed with a cold biopsy forceps. Resected and retrieved. - Diverticulosis in the sigmoid colon, in the descending colon and in the transverse colon. - The examination was otherwise normal on direct and retroflexion views. Recommendations : - Discharge patient to home. - High fiber diet. - Continue present medications. - Await pathology results. - Repeat colonoscopy in 5 years for surveillance based on pathology results. My findings are described in the full procedure note, which is enclosed. If I can be of further assistance, please feel free to contact me at Doctor phone number(s): , Work: . Sincerely, MD Hilda Jackson MD 05/25/2024 9:01:01 AM This report has been signed electronically.
--- NOTE | 2024-05-25 09:03 | PCM.POST.ANE ---
Anesthesia: Postop Eval I Current Vital Signs Temperature: 97 F Pulse Rate: 16 Blood Pressure: 104/63 Respiratory Rate: 16 Pulse Ox: 97 Oxygen Delivery Method: Room Air Assessment Airway patent: Yes Spontaneous unlabored respirations: Yes Mental status: Asleep nausea: No Vomiting: No Anesthesia Complication: No Fluid Hydration Crystalloid volume administer (ml): 40 Total IV fluid infused: 40 Progress Note Anesthesia document: Postop Eval 1 completed: Yes
--- NOTE | 2024-05-25 10:15 | PCM.POSTANE2 ---
Anesthesia Postop Eval I Sum Postop Eval Completion status Anesthesia document: Postop Eval 1 completed: Yes Anesthesia Postop Eval I Summary Anesthesia Postop Eval I Summary: Anesthesia Postop Eval I: Assessment Summary Airway patent Yes 05/25/24 09:03 [email or web address] Spontaneous unlabored Yes 05/25/24 09:03 [email or web address] respirations Mental status Asleep 05/25/24 09:03 [email or web address] nausea No 05/25/24 09:03 [email or web address] Vomiting No 05/25/24 09:03 [email or web address] Anesthesia Postop Eval I: Fluid Summary Crystalloid volume administer 40 05/25/24 09:03 [email or web address] (ml) Colloids volume administered ( ml) Blood Product volume administered (ml) Total IV fluid infused 40 05/25/24 09:03 [email or web address] Anesthesia Postop Eval I: Summary Notes Anesthesia Complication No 05/25/24 09:03 [email or web address] Anesthesia Complication Comment: Post-operative progress note Anesthesia: Postop Eval II Evaluation Mental status: Awake Pain Level: 0 nausea: No Vomiting: No
== END 2024-05-25 09:52 | disposition home or self-care (01) ==
LOC: EN 07:17 → AC 07:19
PROVIDERS: PCP Family Medicine; Referring Provider Family Medicine; Visit Provider Surgery
PROC: 0DJD8ZZ Inspection of Lower Intestinal Tract, Via Natural or Artificial Opening Endoscopic (ICD-10-PCS; CPT 45378; principal; 2024-05-25 08:25)
DX: Z12.11 Encounter for screening for malignant neoplasm of colon (principal); D12.2 Benign neoplasm of ascending colon; K57.30 Diverticulosis of large intestine without perforation or abscess without bleeding; Z79.1 Long term (current) use of non-steroidal anti-inflammatories (NSAID); D12.5 Benign neoplasm of sigmoid colon; Z83.719 Family history of colon polyps, unspecified; Z85.3 Personal history of malignant neoplasm of breast; M19.90 Unspecified osteoarthritis, unspecified site; Z90.13 Acquired absence of bilateral breasts and nipples; Z98.51 Tubal ligation status; Z90.710 Acquired absence of both cervix and uterus
CPT/HCPCS: 45380; 88305; A4216; J2405

== ENCOUNTER → 2025-04-13 | Outpatient (CLI) | payer MEDICARE, OTHER, SELFPAY ==
--- NOTE | 2025-04-13 14:57 | BD_ITS ---
PROCEDURE: DEXA BONE DENSITY STUDY 04/13/2025 REASON FOR EXAM: F, age 64 y/o . Postmenopausal. TECHNIQUE: Procedure Code: BDDBD Modality: DX Procedure: DEXA BONE DENSITY STUDY COMPARISON: Prior study dated April 09, 2023. FINDINGS: BMD and T-SCORES Lumbar spine: 1.123 g/cm2, T-score 0.8 Levels: L1 through L4 Change from prior: Improvement of 14.3%. Left femoral neck: 0.576 g/cm2, T-score -2.5 Femoral neck comparison data not recommended for monitoring change. Left total hip: 0.680 g/cm2, T-score -2.1 Change from prior: Improvement of 3.2%. Right femoral neck: 0.675 g/cm2, T-score -1.6 Femoral neck comparison data not recommended for monitoring change. Right total hip: 0.683 g/cm2, T-score -2.1 Change from prior: Loss of 1.8%. The World Health Organization has defined the following categories based on bone density: Normal bone density: T-score equal to or greater than -1.0 Osteopenia: T-score between -1.0 and -2.5 Osteoporosis: T-score equal to or less than -2.5 FRAX (or Comparable) Fracture Risk Assessment: 10 Year Probability of Fracture: Major Osteoporotic Fracture: 12th% Hip Fracture: 2.5% (Note: FRAX is not to be reported in setting of normal range bone density, osteoporosis on DEXA, known history of osteoporosis, prior osteoporotic hip or vertebral fracture, or for any patient undergoing pharmacological treatment for bone loss.) The National Osteoporosis Foundation (NOF) recommends pharmacological treatment for patients with a FRAX 10-year risk of 3% or higher for a hip fracture, or 20% or higher for a major osteoporotic fracture, to prevent osteoporosis and reduce fracture risk. The patient does meet the pharmacological treatment recommendations for prevention of osteoporosis. BD/Dexa Bone Density Study IMPRESSION: OSTEOPENIA. Recommend follow-up as clinically warranted. Reading Location: [id number]
== END | disposition home or self-care (01) ==
LOC: OPBD 14:49
PROVIDERS: PCP Family Medicine; Referring Provider Family Medicine; Visit Provider Family Medicine
DX: M85.852 Other specified disorders of bone density and structure, left thigh (principal)
CPT/HCPCS: 77080